=== PATIENT | female | born 1950 | race Caucasian/White ===

== ENCOUNTER 2017-07-20 02:04 | Observation (INO) | payer MEDICARE ==
[2017-07-20] MEDS ORDERED: ORPHENADRINE 30 MG/ML 2 ML VIAL IVP STA (02:37)
[2017-07-20] MEDS ORDERED: SODIUM CHLORIDE 0.9% 1,000 ML IV STA (02:37)
--- NOTE | 2017-07-20 02:40 | ED ---
General Adult HPI - General Chief complaint: Extremity Problem,Nontraumatic Stated complaint: leg pain Time Seen by Provider: 07/20/17 02:28 Source: patient, RN notes reviewed Mode of arrival: ambulatory Limitations: no limitations - History of Present Illness Initial comments: Patient is a pleasant 67-year-old female presenting to the emergency Department with bilateral leg burning. Symptoms have been present for months. Symptoms have been worse since seen a chiropractor week ago. No leg weakness. No incontinence or retention of bowel or bladder products. Patient's doctor has mentioned neuropathy to her in the past. Patient has known problems in her sacrum and coccyx that she attributes to her pain. Patient also has chronic heel spurs that she attributes to her pain. - Related Data Home Medications Medication Instructions Recorded Confirmed Rivaroxaban [Xarelto] 20 mg PO PC-SUPPER 09/20/14 02/09/15 Losartan Potassium [Cozaar] 25 mg PO DAILY 10/20/14 02/10/15 Acetaminophen Tab [Tylenol Tab] 500 mg PO Q6H 07/20/17 07/20/17 Furosemide [Lasix] 20 mg PO DAILY 07/20/17 07/20/17 Glimepiride [Amaryl] 2 mg PO DAILY 07/20/17 07/20/17 Insulin NPL/Insulin Lispro 35 unit SQ BID 07/20/17 07/20/17 [humaLOG MIX 75-25 VIAL] Meclizine [Antivert] 12.5 mg PO QID 07/20/17 07/20/17 traMADol HCL [Ultram] 50 mg PO DAILY PRN 07/20/17 07/20/17 Allergies Allergy/AdvReac Type Severity Reaction Status Date / Time acetaminophen Allergy nausea Verified 02/09/15 10:15 [From Darvocet-N] from acetominophen after a few doses cephalexin monohydrate Allergy Rash/Hives Verified 02/09/15 10:15 [From Keflex] codeine Allergy Nausea Verified 02/09/15 10:15 latex Allergy Rash/Hives Verified 02/09/15 10:15 propoxyphene napsylate Allergy Rash/Hives Verified 02/09/15 10:15 [From Darvocet-N] Review of Systems ROS Statement: Those systems with pertinent positive or pertinent negative responses have been documented in the HPI. ROS Other: All systems not noted in ROS Statement are negative. Constitutional: Denies: fever Eyes: Denies: eye pain ENT: Denies: ear pain Respiratory: Denies: cough Cardiovascular: Denies: chest pain Endocrine: Denies: fatigue Gastrointestinal: Denies: abdominal pain Genitourinary: Denies: dysuria Musculoskeletal: Reports: back pain (Chronic) Skin: Denies: rash Neurological: Denies: weakness Past Medical History Past Medical History: Atrial Fibrillation, Diabetes Mellitus, Deep Vein Thrombosis (DVT), GERD/Reflux, Hearing Disorder / Deafness, Hypertension, Neurologic Disorder, Osteoarthritis (OA), Pulmonary Embolus (PE) Additional Past Medical History / Comment(s): HX FACTOR 5 , DIZZINESS LATELY-HX VERTIGO SINCE 1991, HX MOTION SICKNESS ALL HER LIFE, HX IBS,TARSAL TUNNEL PROBLEMS NIKOLAY. ANKLES,PINCHED NERVE LOWER BACK, DDD, HAS POLYP LT CHEEK-BUT DR. IBRAHIM DOESN'T WANT PT TO HAVE REMOVED DVT-LT LEG & PE 2007, CHRONIC SINUS, LIVER ENZMES ELEVATED SPRING 2014,THYROID IS ENLARGED, WEARS GLASSES DISTANCE ONLY, FLUID IN LEFT EAR ALL THE TIME History of Any Multi-Drug Resistant Organisms: None Reported Past Surgical History: Bowel Resection, Cholecystectomy, Hysterectomy, Tonsillectomy, Tubal Ligation Additional Past Surgical History / Comment(s): CARDIOVERSION 12/22/14 @ [facility], LUMP REMOVED RT ARMPIT AREA, COLOSTOMY 1991 AFTER HYST R/T RUPTURED BOWEL REVISION OCTOBER 1991 Past Anesthesia/Blood Transfusion Reactions: Previous Problems w/ Anesthesia, Motion Sickness, Postoperative Nausea & Vomiting (PONV) Additional Past Anesthesia/Blood Transfusion Reaction / Comment(s): HX FACTOR 5 LIDEN,PONV- MOTION SICKNESS ALL HER LIFE- VERTIGO Past Psychological History: No Psychological Hx Reported Smoking Status: Never smoker - Past Family History Mother Family Medical History: CVA/TIA, Diabetes Mellitus, Hypertension Father History Unknown: Yes Additional Family Medical History / Comment(s): FATHER @ AGE 83- PT WAS 3 YRS OLD @ THE TIME- HX UNKNOWN Sister(s) Family Medical History: Cancer Additional Family Medical History / Comment(s): 5 SISTERS WITH THYROID- 3 SISTERS HAD CA- PANCREATIC,CERVICAL & MELANOMA General Exam Limitations: no limitations General appearance: alert, in no apparent distress Head exam: Present: atraumatic Eye exam: Present: normal appearance, PERRL ENT exam: Present: normal oropharynx Neck exam: Present: normal inspection Respiratory exam: Present: normal lung sounds bilaterally Cardiovascular Exam: Present: regular rate, normal rhythm Expanded Peripheral pulses: 2+: Dorsalis Pedis (R), Dorsalis Pedis (L) GI/Abdominal exam: Present: soft. Absent: tenderness Extremities exam: Present: normal inspection. Absent: tenderness, pedal edema, calf tenderness Back exam: Present: tenderness (Tenderness to the lower sacrum). Absent: vertebral tenderness Neurological exam: Present: alert. Absent: motor sensory deficit Psychiatric exam: Present: normal affect, normal mood Skin exam: Present: normal color. Absent: rash Course Vital Signs 07/20/17 07/20/17 07/20/17 02:12 04:00 05:00 Temperature 97.7 F Pulse Rate 73 120 H 64 Respiratory 20 19 16 Rate Blood Pressure 104/51 161/70 O2 Sat by Pulse 97 98 100 Oximetry 07/20/17 05:35 Temperature Pulse Rate 75 Respiratory 16 Rate Blood Pressure 113/86 O2 Sat by Pulse 98 Oximetry - Reevaluation(s) Reevaluation #1: 07/20/17 03:39 Patient reevaluated and states she is feeling somewhat better with Norflex. Patient does feel nauseated and states she has been nauseated for the past several days. Patient will be provided Zofran. Medical Decision Making - Medical Decision Making Patient was earlier reevaluated and somewhat improved. Patient states last time she saw her doctor he was trying to advise her to be admitted to the hospital for IV treatment. Case was then discussed in detail with Dr. Becerril , who will admit his patient and does request consult with Dr. Goodrich. - Lab Data Result diagrams: 07/20/17 02:35 07/20/17 02:35 Lab Results 07/20/17 07/20/17 07/20/17 Range/Units 02:35 02:35 02:35 WBC 7.2 (3.8-10.6) k/uL RBC 4.50 (3.80-5.40) m/uL Hgb 13.1 (11.4-16.0) gm/dL Hct 41.4 (34.0-46.0) % MCV 92.0 (80.0-100.0) fL MCH 29.2 (25.0-35.0) pg MCHC 31.7 (31.0-37.0) g/dL RDW 15.2 (11.5-15.5) % Plt Count 164 (150-450) k/uL Neutrophils % 65 % Lymphocytes % 24 % Monocytes % 8 % Eosinophils % 2 % Basophils % 1 % Neutrophils # 4.7 (1.3-7.7) k/uL Lymphocytes # 1.7 (1.0-4.8) k/uL Monocytes # 0.6 (0-1.0) k/uL Eosinophils # 0.1 (0-0.7) k/uL Basophils # 0.0 (0-0.2) k/uL PT 14.2 H (9.0-12.0) sec INR 1.5 H (<1.2) APTT 24.4 (22.0-30.0) sec Sodium 142 (137-145) mmol/L Potassium 4.6 (3.5-5.1) mmol/L Chloride 106 (98-107) mmol/L Carbon Dioxide 22 (22-30) mmol/L Anion Gap 14 mmol/L BUN 27 H (7-17) mg/dL Creatinine 1.00 (0.52-1.04) mg/dL Est GFR (CKD-EPI)AfAm 69 (>60 ml/min/1.73 sqM) Est GFR (CKD-EPI)NonAf 60 (>60 ml/min/1.73 sqM) Glucose 141 H (74-99) mg/dL Calcium 9.2 (8.4-10.2) mg/dL Phosphorus 3.3 (2.5-4.5) mg/dL Magnesium 1.9 (1.6-2.3) mg/dL Total Bilirubin 1.2 (0.2-1.3) mg/dL AST 38 H (14-36) U/L ALT 35 (9-52) U/L Alkaline Phosphatase 66 (38-126) U/L Total Protein 6.9 (6.3-8.2) g/dL Albumin 3.6 (3.5-5.0) g/dL - Radiology Data Radiology results: image reviewed (X-ray of the sacrum and coccyx shows no acute process. X-ray of the lumbar spine shows no acute abnormality. Multilevel degenerative changes.) Disposition Clinical Impression: Bilateral leg pain, Low back pain Disposition: ADMITTED IP TO THIS HOSP Referrals: Mehdi Becerril MD [Primary Care Provider] - 1-2 days
[2017-07-20 03:03] LABS: Basophils % (A) 1 %; Eosinophils # (A) 0.1 k/uL (0-0.7); Eosinophils % (A) 2 %; HCT 41.4 % (34.0-46.0); HGB 13.1 gm/dL (11.4-16.0); Lymphocytes # (A) 1.7 k/uL (1.0-4.8); Lymphocytes % (A) 24 %; MCH 29.2 pg (25.0-35.0); MCHC 31.7 g/dL (31.0-37.0); Mean Platelet Volume 7.9; Monocytes # (A) 0.6 k/uL (0-1.0); Monocytes % (A) 8 %; Neutrophils # (A) 4.7 k/uL (1.3-7.7); Neutrophils % (A) 65 %; Platelet Count 164 k/uL (150-450); RDW 15.2 % (11.5-15.5); WBC 7.2 k/uL (3.8-10.6)
[2017-07-20 03:04] LABS: INR 1.5 (<1.2); Partial Thromboplastin Time 24.4 sec (22.0-30.0); Prothrombin Time 14.2 sec (9.0-12.0)
[2017-07-20 03:06] LABS: Albumin 3.6 g/dL (3.5-5.0); Calcium 9.2 mg/dL (8.4-10.2); Magnesium 1.9 mg/dL (1.6-2.3); Phosphorus 3.3 mg/dL (2.5-4.5); Potassium 4.6 mmol/L (3.5-5.1); Total Bilirubin 1.2 mg/dL (0.2-1.3); Total Protein 6.9 g/dL (6.3-8.2)
--- NOTE | 2017-07-20 03:36 | XR ---
EXAM: XR Lumbar Spine, 2 or 3 Views CLINICAL HISTORY: No recent injury. pt. Has hx. of back and sacrum/coccyx years ago. pt. C/o low back pain and sacrum/coccyx pain. Reason: Pain TECHNIQUE: Frontal and lateral views of the lumbar spine. COMPARISON: None FINDINGS: Bones/joints: No acute fracture or subluxation identified. Prominent multilevel degenerative changes of the lower thoracic spine and lumbar spine. Mild degenerative changes of the hips. Soft tissues: Cholecystectomy clips in the right upper quadrant. IMPRESSION: No acute abnormality identified. Prominent multilevel degenerative changes of the visualized spine.
--- NOTE | 2017-07-20 03:37 | XR ---
EXAM: XR Sacrum and Coccyx, 2 or more Views CLINICAL HISTORY: No recent injury. pt. Has hx. of back and sacrum/coccyx years ago. pt. C/o low back pain and sacrum/coccyx pain. Reason: Pain TECHNIQUE: Frontal and lateral views of the sacrum and coccyx. COMPARISON: None FINDINGS: Bones/joints: No acute fracture or subluxation identified. Mild degenerative changes of the hips. Prominent multilevel degenerative changes of the visualized lower lumbar spine. Soft tissues: Normal. IMPRESSION: No acute abnormality identified.
[2017-07-20] MEDS ORDERED: ONDANSETRON 4 MG/2 ML VIAL IVP STA (03:38)
[2017-07-20] MEDS ORDERED: MORPHINE SULFATE/PF 10MG/10ML VL IVP STA (04:10)
[2017-07-20] MEDS ORDERED: SODIUM CHLORIDE 0.9% 500 ML IV STA (04:11)
[2017-07-20] MEDS ORDERED: MORPHINE SULFATE/PF 10MG/10ML VL IV PRN (06:56)
[2017-07-20] MEDS ORDERED: ONDANSETRON 4 MG/2 ML VIAL IVP PRN (06:56)
[2017-07-20] MEDS ORDERED: NALOXONE 0.4 MG/ML 1 ML VIAL IV PRN (06:56)
[2017-07-20] MEDS ORDERED: SODIUM CHLORIDE 0.9% 1,000 ML IV SCH (07:00)
[2017-07-20 08:43] VITALS: BMI 48.5
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
[2017-07-20] MEDS: PANTOPRAZOLE 40 MG/10 ML VIAL IV SCH (10:01)
[2017-07-20] MEDS ORDERED: FUROSEMIDE 20 MG TAB PO SCH (10:45)
[2017-07-20] MEDS ORDERED: INSULN ASP PRT/INSULIN ASPART 100 UNIT/ML 10 ML VIAL SQ SCH (10:45)
[2017-07-20] MEDS ORDERED: MORPHINE ORAL SOLN 10 MG/5 ML CUP PO PRN (11:24)
[2017-07-20 11:29] LABS: Glucose,Whole Blood 157 mg/dL (75-99)
[2017-07-20] MEDS: FUROSEMIDE 40 MG TAB PO SCH (11:34)
[2017-07-20] MEDS: LOSARTAN 25 MG TAB PO SCH (11:34)
[2017-07-20] MEDS: INSULIN ASPART 100 UNIT/ML 1 ML 10 ML VIAL SQ SCH ×3 (11:40→21:57)
[2017-07-20] MEDS ORDERED: ACETAMINOPHEN TAB 500 MG TAB PO PRN (11:43)
[2017-07-20] MEDS ORDERED: ACETAMINOPHEN TAB 500 MG TAB PO SCH (12:00)
[2017-07-20] MEDS: GLIMEPIRIDE 2 MG TAB PO SCH (14:31)
[2017-07-20 16:19] LABS: Glucose,Whole Blood 146 mg/dL (75-99)
[2017-07-20] MEDS: CARVEDILOL 12.5 MG TAB PO SCH (17:51)
[2017-07-20] MEDS: methylPREDNISolone SOD SUCCI 125 MG/2 ML VIAL IV SCH ×2 (17:51→23:58)
[2017-07-20] MEDS: INSULN ASP PRT/INSULIN ASPART 100 UNIT/ML 10 ML VIAL SQ SCH (17:53)
[2017-07-20 18:22] LABS: T4, Free (Free Thyroxine) 1.51 ng/dL (0.78-2.19)
[2017-07-20] MEDS: RIVAROXABAN 20 MG TAB PO SCH (19:32)
[2017-07-20 19:57] LABS: Glucose,Whole Blood 235 mg/dL (75-99)
[2017-07-20 19:59] LABS: Hemoglobin A1C 8.7 % (4.0-6.0)
[2017-07-20] MEDS: DILTIAZEM ORAL 60 MG TAB PO SCH (20:48)
--- NOTE | 2017-07-21 06:28 | HP ---
HISTORY AND PHYSICAL CHIEF COMPLAINT: A 67-year-old white female admitted with bilateral leg burning and severe lower back pain. She had no incontinence of urine or stool. She has neuropathy and lumbar disc disease. She has been seen by orthopedic surgeon. She has had tachycardia into the 150s. She has not taken a beta ashley that she normally takes at home. HOME MEDICATIONS: 1. Xarelto 20 daily. 2. Cozaar 25 daily. 3. Tylenol 500 q.6 hours. 4. Lasix 20 daily. 5. Amaryl 2 mg daily. 6. Humalog 75/25, 35 units subcu b.i.d. 7. Antivert 12.5 mg p.o. q.i.d. 8. Tramadol 50 daily. ALLERGIES: KEFLEX, CODEINE, LASIX, DARVOCET-N 100. REVIEW OF SYSTEMS: Fourteen-point review of systems negative except for mentioned in HPI. PAST MEDICAL HISTORY: Atrial fibrillation, diabetes mellitus, DVT, GERD, hearing disorder, hypertension, neurologic disorder, osteoarthritis, pulmonary embolism, factor 5 deficiency, IBS, carpal tunnel syndrome, polyp left cheek, chronic sinus congestion, vertigo. SURGERY: Bowel resection, cholecystectomy, hysterectomy, tonsillectomy, tubal ligation, colostomy ruptured bowel revision. FAMILY HISTORY: Mother with CVA, TIA, diabetes, hypertension. Father unknown. Sister with thyroid cancer, pancreatic cancer, melanoma. PHYSICAL EXAM: VITAL SIGNS: Stable, afebrile. CARDIOVASCULAR: S1, S2. LUNGS: Transmitted upper airway sounds. HEMATOLOGY: Negative Homans. ENDOCRINE: BMI is over 45. GI: Distended due to obesity. MUSCULOSKELETAL: Tenderness to palpation lumbar sacral spine, mid thoracic spine, cervical spine. SENSORY: Decreased sensation of extremities. : No suprapubic tenderness. OPHTHALMOLOGICAL: Pupils equal, round, reactive to light and accommodation. Temperature 97.7, blood pressure 140s over 70s, pulse is 150s, temp 97 to 98, O2 97% to 100%. Labs were reviewed. ASSESSMENT: 1. Lumbar radiculopathy. 2. Lumbar disc disease. She is refusing outpatient epidurals or surgery. She has been given morphine currently at this time with improvement. Continue current treatment. Follow up in the next 24 to 48 hours with PT, OT. Possible discharge home. Beta blockers will be added for tachycardia. Cardiology is consulted. Labs were reviewed. MMODL / IJN: [id number] /
[2017-07-21 07:21] LABS: Glucose,Whole Blood 323 mg/dL (75-99)
[2017-07-21] MEDS: INSULN ASP PRT/INSULIN ASPART 100 UNIT/ML 10 ML VIAL SQ SCH ×2 (07:35→17:32)
[2017-07-21] MEDS: INSULIN ASPART 100 UNIT/ML 1 ML 10 ML VIAL SQ SCH ×4 (07:36→21:01)
[2017-07-21] MEDS ORDERED: INSULIN ASPART 100 UNIT/ML 1 ML 10 ML VIAL SQ ONE (08:06)
[2017-07-21] MEDS: LOSARTAN 25 MG TAB PO SCH (08:26)
[2017-07-21] MEDS: GLIMEPIRIDE 2 MG TAB PO SCH (08:26)
[2017-07-21] MEDS: DILTIAZEM ORAL 60 MG TAB PO SCH ×3 (08:26→21:56)
[2017-07-21] MEDS: FUROSEMIDE 40 MG TAB PO SCH (08:26)
[2017-07-21] MEDS: CARVEDILOL 12.5 MG TAB PO SCH ×2 (08:26→18:49)
[2017-07-21] MEDS: PANTOPRAZOLE 40 MG/10 ML VIAL IV SCH (08:27)
[2017-07-21] MEDS ORDERED: GLIMEPIRIDE 2 MG TAB PO SCH (09:00)
[2017-07-21] MEDS ORDERED: HYDROcodone/APAP 7.5-325MG 1 EACH TAB PO PRN (10:21)
[2017-07-21] MEDS ORDERED: predniSONE 20 MG TAB PO SCH (10:30)
[2017-07-21] MEDS: methylPREDNISolone SOD SUCCI 125 MG/2 ML VIAL IV SCH (10:34)
[2017-07-21 11:50] LABS: Glucose,Whole Blood 252 mg/dL (75-99)
--- NOTE | 2017-07-21 13:42 | US ---
EXAMINATION TYPE: US thyroid st tissue head/neck DATE OF EXAM: 07/21/2017 COMPARISON: US 2009 CLINICAL HISTORY: inpatient US for previously enlarged thyroid GLAND SIZE: Right Lobe: 4.4 x 1.9 x 1.7 cm Overall Parenchyma: homogenous Left Lobe: 3.7 x 2.4 x 1.6 cm Overall Parenchyma: homogeneous Isthmus Thickness: 0.9 cm NODULES RIGHT: # of nodules measured on right: 0 LEFT: # of nodules measured on left: 0 ISTHMUS: # of nodules measured in the isthmus: 0 Bilateral neck scanned, no evidence of lymphadenopathy. IMPRESSION: Thyroid size as described.
--- NOTE | 2017-07-21 14:16 | CONS ---
CONSULTATION This is a 67-year-old obese lady with type 2 diabetes, hypertension, COPD, and persistent atrial fibrillation. She is also not very compliant with medications. She generally takes whatever medications she chooses to. She came into the hospital with back discomfort and leg discomfort. She is known to have atrial fibrillation. She stop taking both beta blockers and Cardizem. She, however, takes Xarelto. After arrival, she was found to be in atrial fibrillation at a moderate ventricular rate and therefore I was asked to see her in this regard. I evaluated the patient today. I recommended that she takes a combination of beta ashley and Cardizem, but she did not take Cardizem yesterday. She used to be on Lopressor, but she stopped it on her own. However, I have asked her to take Coreg 12.5 mg b.i.d. and heart rate is somewhat improved today at about 110 beats per minute. Her blood sugar control according to the patient is out of control and her A1c was more than 9.0. Her back pain has improved. She was seen by Dr. Goodrich who advised medical therapy, but no surgical intervention. This lady was also seen by Dr. Mcghee who felt that she is not a good candidate for any intervention and I suggested rate control and anticoagulation. She also has a nonischemic cardiomyopathy-type picture, especially when she has episodes of faster ventricular rate with atrial fibrillation. However, her coronary angiography that was performed in January 2015 did not reveal any significant obstructive CAD. At the time of my evaluation, she complains of feeling better than she did yesterday. Her breathing is easier, edema of lower extremities has improved. Her back pain has also improved. She has shortness of breath with activity. PAST MEDICAL HISTORY: Remarkable for type 2 diabetes, hypertension, obesity, and persistent atrial fibrillation. She has a remote history of DVT as well. MEDICATIONS: At home include Xarelto 20 mg daily, Cozaar 25 mg daily, Lasix 20 mg daily, Amaryl, insulin, Antivert, tramadol, and aspirin. ALLERGIES: She is allergic to DARVOCET, CODEINE, and KEFLEX. PHYSICAL EXAMINATION: Blood pressure is 118/70, pulse rate is about 110 to 120, irregular. HEENT: Unremarkable. Fundus was not examined by me. Neck is supple. There is JVD of 1 cm. No carotid bruit. Heart exam reveals S1, S2 heard normally with irregularity of rhythm, short systolic murmur. Lungs are clear with diminished air entry over both bases. Abdomen is distended, nontender. Lower extremities reveal bilateral trace edema. Central nervous system is grossly within normal limits. IMPRESSION: 1. Atrial fibrillation with moderate ventricular rate. Noncompliant with medications. 2. Obesity. 3. Type 2 diabetes mellitus. 4. History of degenerative joint disease with back pain. RECOMMENDATION: I am recommending that we treat her with a combination of Coreg and Cardizem 60 mg t.i.d. She is not a very good candidate for any pulmonary vein isolation-type procedures. We will pursue rate control and anticoagulation. Patient can be discharged and she is advised to follow up with me as an outpatient. I am also recommending an echocardiogram to be performed, but patient is not receptive to any additional testing. Thank you very much for the consult. LENCHO / WINNIE: [id number] /
[2017-07-21 16:54] LABS: Glucose,Whole Blood 182 mg/dL (75-99)
[2017-07-21] MEDS: RIVAROXABAN 20 MG TAB PO SCH (19:21)
[2017-07-21 20:35] LABS: Glucose,Whole Blood 222 mg/dL (75-99)
[2017-07-21] MEDS: MORPHINE SULFATE ER 15 MG TABLET PO SCH ×2 (21:02→21:10)
--- NOTE | 2017-07-21 22:31 | PN ---
PROGRESS NOTE SUBJECTIVE: [age]-old white female, atrial fibrillation with rapid ventricular response. Cardiology saw her today. She was placed on oral Cardizem to go with a beta ashley. IV prednisone was discontinued due to elevated sugar. She was given 40 mg today. Tomorrow we will switch her to 20 mg. She has degenerative joint disease with back pain. I put her on long-acting morphine, as she cannot tolerate [place]oud or Percocet due to upset stomach. Sugar is in the mid 200s. CARDIOVASCULAR: S1, S2. LUNGS: Transmitted upper airway sounds. Neck ultrasound is pending. She wanted her hormone levels checked, her thyroid levels checked. Thyroid is normal. ASSESSMENT: 1. Atrial fibrillation, moderate ventricular response. 2. Obesity. 3. Lumbar neuritis. 4. Peripheral neuropathy secondary to diabetic neuropathy. 5. Type 2 diabetes mellitus. 6. Obesity. Echo has been ordered. Will follow up in the next 24 to 48 hours. Possible discharge. Continue with PT, OT. Await neck ultrasound, etc. MMODL / IJN: [id number] /
[2017-07-22] MEDS: MORPHINE SULFATE ER 15 MG TABLET PO SCH ×2 (00:45→07:29)
[2017-07-22 06:57] LABS: Glucose,Whole Blood 260 mg/dL (75-99)
[2017-07-22] MEDS: INSULIN ASPART 100 UNIT/ML 1 ML 10 ML VIAL SQ SCH ×2 (07:25→12:50)
[2017-07-22] MEDS: INSULN ASP PRT/INSULIN ASPART 100 UNIT/ML 10 ML VIAL SQ SCH (07:25)
[2017-07-22] MEDS: FUROSEMIDE 40 MG TAB PO SCH (07:26)
[2017-07-22] MEDS: DILTIAZEM ORAL 60 MG TAB PO SCH (07:26)
[2017-07-22] MEDS: CARVEDILOL 12.5 MG TAB PO SCH (07:27)
[2017-07-22] MEDS: LOSARTAN 25 MG TAB PO SCH (07:27)
[2017-07-22] MEDS: GLIMEPIRIDE 2 MG TAB PO SCH (07:27)
[2017-07-22] MEDS ORDERED: PANTOPRAZOLE 40 MG TABLET PO SCH (07:30)
[2017-07-22] MEDS ORDERED: predniSONE 20 MG TAB PO SCH (09:00)
[2017-07-22 11:08] LABS: Glucose,Whole Blood 253 mg/dL (75-99)
[2017-07-22 14:49] VITALS: BP 112/80; PULSE 79; RESP 18; TEMP 97.5
== END 2017-07-22 15:55 | disposition home or self-care (01) ==
LOC: EC 02:04 → 5MS5E 06:56
PROVIDERS: ADMIT Family Medicine; ATTEND Family Medicine
DX: M54.16 Radiculopathy, lumbar region (principal); R11.0 Nausea; R42 Dizziness and giddiness; M77.32 Calcaneal spur, left foot; M77.31 Calcaneal spur, right foot; I48.1 Persistent atrial fibrillation; M43.16 Spondylolisthesis, lumbar region; M47.9 Spondylosis, unspecified; G89.29 Other chronic pain; M51.9 Unspecified thoracic, thoracolumbar and lumbosacral intervertebral disc disorder; K21.9 Gastro-esophageal reflux disease without esophagitis; I10 Essential (primary) hypertension; D68.51 Activated protein C resistance; H91.90 Unspecified hearing loss, unspecified ear; M19.90 Unspecified osteoarthritis, unspecified site; E11.42 Type 2 diabetes mellitus with diabetic polyneuropathy; R00.0 Tachycardia, unspecified; K58.9 Irritable bowel syndrome, unspecified; J44.9 Chronic obstructive pulmonary disease, unspecified; E66.9 Obesity, unspecified; Z68.42 Body mass index [BMI] 45.0-49.9, adult; F41.9 Anxiety disorder, unspecified; I42.9 Cardiomyopathy, unspecified; Z79.01 Long term (current) use of anticoagulants; Z79.899 Other long term (current) drug therapy; Z91.14 Patient's other noncompliance with medication regimen; Z79.4 Long term (current) use of insulin; Z79.84 Long term (current) use of oral hypoglycemic drugs; Z88.5 Allergy status to narcotic agent; Z88.6 Allergy status to analgesic agent; Z88.1 Allergy status to other antibiotic agents; Z91.040 Latex allergy status; Z86.718 Personal history of other venous thrombosis and embolism; Z86.711 Personal history of pulmonary embolism; Z80.8 Family history of malignant neoplasm of other organs or systems; Z82.3 Family history of stroke; Z80.0 Family history of malignant neoplasm of digestive organs
CPT/HCPCS: 99284 ×2; 96374 ×2; 96361 ×7; 96375 ×4; 96376 ×2; 36415; 93005; 97161; 85379; 84439; 84481; 80053; 84443; 82670; 83735; 84100; 84484 ×2; 85025; 85610; 85730; 83036; 72100; 72220; 76536; G0378 ×3; J2360; J2930; J2405; J7512 ×2; C9113 ×2; J2270

== ENCOUNTER 2017-08-04 17:06 | Inpatient (IN) | payer MEDICARE ==
[2017-08-04] MEDS ORDERED: MORPHINE SULFATE 4 MG/ML SYRINGE IV STA (17:44)
[2017-08-04] MEDS ORDERED: RX INFO: IV CONTRAST WAS GIVEN 1 EACH MISC MISCELLANE PRN (17:44)
[2017-08-04] MEDS ORDERED: SODIUM CHLORIDE 0.9% 500 ML IV STA (17:44)
--- NOTE | 2017-08-04 17:48 | ED ---
General Adult HPI - General Chief complaint: Abdominal Pain Stated complaint: ABDOMINAL PAIN Time Seen by Provider: 08/04/17 17:30 Source: patient, RN notes reviewed, old records reviewed Mode of arrival: ambulatory Limitations: no limitations - History of Present Illness Initial comments: 67-year-old female presents for evaluation of abdominal pain. Pain is primarily lower central abdominal pain. His been present for the past several days. Patient has been passing gas, she had an episode of diarrhea yesterday. No significant vomiting, however patient has had nausea and dry heaving. She has remote history of hysterectomy and colostomy status post reversal. Patient also has had chills, no measured fever. Denies chest pain she's had some mild dyspnea and palpitations, she does have history of atrial fibrillation and is on anticoagulation. No dysuria. - Related Data Home Medications Medication Instructions Recorded Confirmed Rivaroxaban [Xarelto] 20 mg PO PC-SUPPER 09/20/14 08/04/17 Furosemide [Lasix] 40 mg PO DAILY 07/20/17 08/04/17 Glimepiride [Amaryl] 2 mg PO DAILY 07/20/17 08/04/17 Insulin NPL/Insulin Lispro 35 unit SQ BID 07/20/17 08/04/17 [humaLOG MIX 75-25 VIAL] Losartan Potassium [Cozaar] 25 mg PO DAILY 07/20/17 08/04/17 traMADol HCL [Ultram] 50 mg PO DAILY PRN 07/20/17 08/04/17 Loratadine [Claritin] 10 mg PO DAILY 08/04/17 08/04/17 Allergies Allergy/AdvReac Type Severity Reaction Status Date / Time acetaminophen Allergy nausea Verified 08/04/17 17:35 [From Darvocet-N] from acetominophen after a few doses cephalexin monohydrate Allergy Rash/Hives Verified 08/04/17 17:35 [From Keflex] latex Allergy Rash/Hives Verified 08/04/17 17:35 morphine Allergy Itching/Teo Verified 08/04/17 17:35 sea propoxyphene napsylate Allergy Rash/Hives Verified 08/04/17 17:35 [From Darvocet-N] codeine AdvReac Nausea Verified 08/04/17 17:35 Review of Systems ROS Statement: Those systems with pertinent positive or pertinent negative responses have been documented in the HPI. ROS Other: All systems not noted in ROS Statement are negative. Past Medical History Past Medical History: Atrial Fibrillation, Diabetes Mellitus, Deep Vein Thrombosis (DVT), GERD/Reflux, Hearing Disorder / Deafness, Neurologic Disorder , Osteoarthritis (OA), Pulmonary Embolus (PE) Additional Past Medical History / Comment(s): HX FACTOR 5 , DIZZINESS LATELY-HX VERTIGO SINCE 1991, HX MOTION SICKNESS ALL HER LIFE, HX IBS,TARSAL TUNNEL PROBLEMS NIKOLAY. ANKLES,PINCHED NERVE LOWER BACK, DDD, HAS POLYP LT CHEEK-BUT DR. IBRAHIM DOESN'T WANT PT TO HAVE REMOVED DVT-LT LEG & PE 2007, CHRONIC SINUS, LIVER ENZMES ELEVATED SPRING 2014,THYROID IS ENLARGED, WEARS GLASSES DISTANCE ONLY, FLUID IN LEFT EAR ALL THE TIME History of Any Multi-Drug Resistant Organisms: None Reported Past Surgical History: Bowel Resection, Cholecystectomy, Hysterectomy, Tonsillectomy, Tubal Ligation Additional Past Surgical History / Comment(s): CARDIOVERSION 2014 and 2016 @ [facility], LUMP REMOVED RT ARMPIT AREA, COLOSTOMY 1991 AFTER HYST R/T RUPTURED BOWEL REVISION OCTOBER 1991 Past Anesthesia/Blood Transfusion Reactions: Previous Problems w/ Anesthesia, Motion Sickness, Postoperative Nausea & Vomiting (PONV) Additional Past Anesthesia/Blood Transfusion Reaction / Comment(s): HX FACTOR 5 LIDEN,PONV- MOTION SICKNESS ALL HER LIFE- VERTIGO Past Psychological History: Anxiety Smoking Status: Never smoker Past Alcohol Use History: None Reported Past Drug Use History: None Reported - Past Family History Mother Family Medical History: CVA/TIA, Diabetes Mellitus, Hypertension Father History Unknown: Yes Additional Family Medical History / Comment(s): FATHER @ AGE 83- PT WAS 3 YRS OLD @ THE TIME- HX UNKNOWN Sister(s) Family Medical History: Cancer Additional Family Medical History / Comment(s): 5 SISTERS WITH THYROID- 3 SISTERS HAD CA- PANCREATIC,CERVICAL & MELANOMA General Exam Limitations: no limitations General appearance: alert, in no apparent distress Head exam: Present: atraumatic, normocephalic Eye exam: Present: normal appearance, PERRL ENT exam: Present: mucous membranes dry Neck exam: Present: normal inspection. Absent: tenderness, meningismus Respiratory exam: Present: normal lung sounds bilaterally. Absent: respiratory distress Cardiovascular Exam: Present: tachycardia, irregular rhythm GI/Abdominal exam: Present: soft, distended (Periumbilical and left lower quadrant tenderness to palpation), tenderness. Absent: guarding, rebound Extremities exam: Present: normal inspection, normal capillary refill. Absent: pedal edema Neurological exam: Present: alert, oriented X3, CN II-XII intact. Absent: motor sensory deficit Psychiatric exam: Present: normal affect, normal mood Skin exam: Present: warm, dry, intact. Absent: cyanosis, diaphoretic Course Vital Signs 08/04/17 08/04/17 08/04/17 17:18 18:01 18:31 Temperature 98.2 F Pulse Rate 141 H 147 H 141 H Respiratory 20 20 18 Rate Blood Pressure 123/73 105/52 109/75 O2 Sat by Pulse 97 95 97 Oximetry 08/04/17 08/04/17 08/04/17 18:57 19:30 19:48 Temperature Pulse Rate 121 H 139 H 122 H Respiratory 18 20 18 Rate Blood Pressure 131/66 138/91 133/89 O2 Sat by Pulse 98 99 96 Oximetry 08/04/17 20:19 Temperature Pulse Rate 124 H Respiratory 20 Rate Blood Pressure 133/56 O2 Sat by Pulse 98 Oximetry EKG Findings - EKG Comments: EKG Findings:: EKG, atrial fibrillation with left axis deviation, right bundle branch block, ventricular rate 148, QRS duration 128, QTC [address] segment elevation Medical Decision Making - Medical Decision Making 67-year-old female presenting with lower abdominal pain and bloating. Patient is found to be in A. fib with RVR. She is started on Cardizem, patient is currently anticoagulated with XArelto. Regarding the patient's abdominal pain, normal white blood cell count, stable hemoglobin, normal electrolytes and liver testing. Urinalysis does show 20 wbc's with rare bacteria, this will be cultured. CT is obtained, shows ventral hernia without obstruction and soft tissue edema. Case discussed with Dr. Becerril, he will accept admission, cardiology and general surgery will be placed on consult. - Lab Data Result diagrams: 08/04/17 17:49 08/04/17 17:49 Lab Results 08/04/17 08/04/17 08/04/17 Range/Units 17:49 17:49 17:49 WBC 6.8 (3.8-10.6) k/uL RBC 4.63 (3.80-5.40) m/uL Hgb 14.3 (11.4-16.0) gm/dL Hct 43.2 (34.0-46.0) % MCV 93.3 (80.0-100.0) fL MCH 30.8 (25.0-35.0) pg MCHC 33.0 (31.0-37.0) g/dL RDW 15.8 H (11.5-15.5) % Plt Count 163 (150-450) k/uL Neutrophils % 67 % Lymphocytes % 23 % Monocytes % 6 % Eosinophils % 1 % Basophils % 1 % Neutrophils # 4.6 (1.3-7.7) k/uL Lymphocytes # 1.6 (1.0-4.8) k/uL Monocytes # 0.4 (0-1.0) k/uL Eosinophils # 0.1 (0-0.7) k/uL Basophils # 0.0 (0-0.2) k/uL PT (9.0-12.0) sec INR (<1.2) APTT (22.0-30.0) sec Sodium 143 (137-145) mmol/L Potassium 4.5 (3.5-5.1) mmol/L Chloride 103 (98-107) mmol/L Carbon Dioxide 23 (22-30) mmol/L Anion Gap 17 mmol/L BUN 25 H (7-17) mg/dL Creatinine 1.00 (0.52-1.04) mg/dL Est GFR (CKD-EPI)AfAm 69 (>60 ml/min/1.73 sqM) Est GFR (CKD-EPI)NonAf 60 (>60 ml/min/1.73 sqM) Glucose 222 H (74-99) mg/dL Plasma Lactic Acid Erick (0.7-2.0) mmol/L Calcium 9.4 (8.4-10.2) mg/dL Magnesium 2.2 (1.6-2.3) mg/dL Total Bilirubin 1.3 (0.2-1.3) mg/dL AST 35 (14-36) U/L ALT 40 (9-52) U/L Alkaline Phosphatase 83 (38-126) U/L Total Creatine Kinase 115 (30-135) U/L CK-MB (CK-2) 2.9 H* (0.0-2.4) ng/mL CK-MB (CK-2) Rel Index 2.5 Troponin I 0.012 (0.000-0.034) ng/mL Total Protein 6.8 (6.3-8.2) g/dL Albumin 3.7 (3.5-5.0) g/dL Amylase 53 (30-110) U/L Lipase 166 (23-300) U/L Urine Color Urine Appearance (Clear) Urine pH (5.0-8.0) Ur Specific [place] (1.001-1.035) Urine Protein (Negative) Urine Glucose (UA) (Negative) Urine Ketones (Negative) Urine Blood (Negative) Urine Nitrite (Negative) Urine Bilirubin (Negative) Urine Urobilinogen (<2.0) mg/dL Ur Leukocyte Esterase (Negative) Urine RBC (0-5) /hpf Urine WBC (0-5) /hpf Ur Squamous Epith Cells (0-4) /hpf Urine Bacteria (None) /hpf Hyaline Casts (0-2) /lpf Urine Mucus (None) /hpf 08/04/17 08/04/17 08/04/17 Range/Units 17:49 17:49 18:01 WBC (3.8-10.6) k/uL RBC (3.80-5.40) m/uL Hgb (11.4-16.0) gm/dL Hct (34.0-46.0) % MCV (80.0-100.0) fL MCH (25.0-35.0) pg MCHC (31.0-37.0) g/dL RDW (11.5-15.5) % Plt Count (150-450) k/uL Neutrophils % % Lymphocytes % % Monocytes % % Eosinophils % % Basophils % % Neutrophils # (1.3-7.7) k/uL Lymphocytes # (1.0-4.8) k/uL Monocytes # (0-1.0) k/uL Eosinophils # (0-0.7) k/uL Basophils # (0-0.2) k/uL PT 13.0 H (9.0-12.0) sec INR 1.4 H (<1.2) APTT 23.2 (22.0-30.0) sec Sodium (137-145) mmol/L Potassium (3.5-5.1) mmol/L Chloride (98-107) mmol/L Carbon Dioxide (22-30) mmol/L Anion Gap mmol/L BUN (7-17) mg/dL Creatinine (0.52-1.04) mg/dL Est GFR (CKD-EPI)AfAm (>60 ml/min/1.73 sqM) Est GFR (CKD-EPI)NonAf (>60 ml/min/1.73 sqM) Glucose (74-99) mg/dL Plasma Lactic Acid Erick 1.8 (0.7-2.0) mmol/L Calcium (8.4-10.2) mg/dL Magnesium (1.6-2.3) mg/dL Total Bilirubin (0.2-1.3) mg/dL AST (14-36) U/L ALT (9-52) U/L Alkaline Phosphatase (38-126) U/L Total Creatine Kinase (30-135) U/L CK-MB (CK-2) (0.0-2.4) ng/mL CK-MB (CK-2) Rel Index Troponin I (0.000-0.034) ng/mL Total Protein (6.3-8.2) g/dL Albumin (3.5-5.0) g/dL Amylase (30-110) U/L Lipase (23-300) U/L Urine Color Yellow Urine Appearance Cloudy H (Clear) Urine pH 6.5 (5.0-8.0) Ur Specific [place] 1.008 (1.001-1.035) Urine Protein Trace H (Negative) Urine Glucose (UA) Negative (Negative) Urine Ketones Negative (Negative) Urine Blood Small H (Negative) Urine Nitrite Negative (Negative) Urine Bilirubin Negative (Negative) Urine Urobilinogen <2.0 (<2.0) mg/dL Ur Leukocyte Esterase Large H (Negative) Urine RBC 14 H (0-5) /hpf Urine WBC 28 H (0-5) /hpf Ur Squamous Epith Cells 6 H (0-4) /hpf Urine Bacteria Rare H (None) /hpf Hyaline Casts 2 (0-2) /lpf Urine Mucus Rare H (None) /hpf Critical Care Time Critical Care Time: Yes Total Critical Care Time: 35 Disposition Clinical Impression: Atrial fibrillation with RVR, Ventral hernia Disposition: ADMITTED IP TO THIS HOSP Condition: Stable Referrals: Mehdi Becerril MD [Primary Care Provider] - 1-2 days Decision to Admit Reason: Admit from EC Decision Date: 08/04/17 Decision Time: 20:23
[2017-08-04] MEDS ORDERED: DILTIAZEM 50 MG in SODIUM CHLORIDE 0.9% 40 ML IV ONE (18:00)
[2017-08-04 18:14] LABS: Appearance,Urine Cloudy (Clear); Bacteria,Urine Rare /hpf; Bilirubin,Urine Negative (Negative); Blood,Urine Small (Negative); Color,Urine Yellow; Glucose,Urine (UA) Negative (Negative); Hyaline Casts,Urine 2 /lpf (0-2); Ketones,Urine Negative (Negative); Leukocyte Esterase,Urine Large (Negative); Mucus,Urine Rare /hpf; Nitrite,Urine Negative (Negative); PH, Urine 6.5 (5.0-8.0); Protein,Urine Trace (Negative); RBC,Urine 14 /hpf (0-5); Specific Gravity,Urine 1.008 (1.001-1.035); Squamous Epithelial Cell,Urine 6 /hpf (0-4); Urobilinogen,Urine <2.0 mg/dL (<2.0); WBC,Urine 28 /hpf (0-5)
[2017-08-04 18:40] LABS: INR 1.4 (<1.2); Partial Thromboplastin Time 23.2 sec (22.0-30.0)
[2017-08-04 18:45] LABS: Basophils % (A) 1 %; Eosinophils # (A) 0.1 k/uL (0-0.7); Eosinophils % (A) 1 %; HCT 43.2 % (34.0-46.0); HGB 14.3 gm/dL (11.4-16.0); Lymphocytes # (A) 1.6 k/uL (1.0-4.8); Lymphocytes % (A) 23 %; MCH 30.8 pg (25.0-35.0); MCV 93.3 fL (80.0-100.0); Mean Platelet Volume 7.5; Monocytes # (A) 0.4 k/uL (0-1.0); Monocytes % (A) 6 %; Neutrophils # (A) 4.6 k/uL (1.3-7.7); Neutrophils % (A) 67 %; Platelet Count 163 k/uL (150-450); RBC 4.63 m/uL (3.80-5.40); RDW 15.8 % (11.5-15.5); WBC 6.8 k/uL (3.8-10.6)
[2017-08-04 18:59] LABS: Albumin 3.7 g/dL (3.5-5.0); Calcium 9.4 mg/dL (8.4-10.2); Magnesium 2.2 mg/dL (1.6-2.3); Potassium 4.5 mmol/L (3.5-5.1); Total Bilirubin 1.3 mg/dL (0.2-1.3); Total Protein 6.8 g/dL (6.3-8.2)
[2017-08-04 19:24] LABS: Troponin I 0.012 ng/mL (0.000-0.034)
[2017-08-04 19:27] LABS: Creatine Kinase MB 2.9 ng/mL (0.0-2.4)
--- NOTE | 2017-08-04 19:45 | CT ---
EXAMINATION TYPE: CT abdomen pelvis w con DATE OF EXAM: 08/04/2017 COMPARISON: 10/01/2011 HISTORY: ABDOMINAL PAIN WITH DISTENTION CT DLP: 3948.6 mGycm Automated exposure control for dose reduction was used. TECHNIQUE: Helical acquisition of images was performed from the lung bases through the pelvis. CONTRAST: Performed without Oral Contrast and with IV Contrast, patient injected with 100 mL of Isovue 300. FINDINGS: Lung bases are clear of infiltrate. There is no pleural effusion. There is slight decreased density i n the liver consistent with fatty infiltration. Spleen appears normal. There is no pancreatic mass. T here are clips from cholecystectomy. Bile ducts are not dilated. There is no adrenal mass. Kidneys show satisfactory contrast opacification. There is no hydronephrosi s. There is subcutaneous edema around the anterior abdomen. There is no retroperitoneal adenopathy. There is no ascites. Bladder distends smoothly. I see no pelv ic mass. There are spondylotic changes in the lumbar spine. I see no intestinal wall thickening. Ther e are no dilated loops. There is no sign of free air. There is a small ventral hernia that contains a small piece of transverse colon. I see no bowel obstruction. There is a second ventral hernia contai ns omental fat that measures 2 cm. There is differential density in the urinary bladder on the superi or aspect thought to be due to beam hardening artifact from the patient's size and not due to a bladd er mass. IMPRESSION: SUBCUTANEOUS EDEMA OVER THE ANTERIOR ABDOMEN. THERE ARE 2 SMALL VENTRAL HERNIAS AND ONE CONTAINS A PO RTION OF THE TRANSVERSE COLON WITHOUT EVIDENCE OF COLONIC OBSTRUCTION. CLINICAL SIGNIFICANCE IS NOT C LEAR. THIS HERNIA IS NEW COMPARED TO OLD EXAM. THERE IS A SECOND SMALL VENTRAL HERNIA THAT CONTAINS O MENTAL FAT AND APPEARS STABLE. FATTY INFILTRATION OF THE LIVER.
[2017-08-04] MEDS ORDERED: NALOXONE 0.4 MG/ML 1 ML VIAL IV PRN (20:18)
[2017-08-04 21:08] LABS: Glucose,Whole Blood 144 mg/dL (75-99)
[2017-08-04 21:43] VITALS: BMI 48.4
[2017-08-04] MEDS ORDERED: ONDANSETRON 4 MG/2 ML VIAL IVP PRN (23:13)
[2017-08-04] MEDS: INSULN ASP PRT/INSULIN ASPART 100 UNIT/ML 10 ML VIAL SQ SCH (23:40)
[2017-08-05] MEDS: traMADol 50 MG TAB PO PRN (01:56)
[2017-08-05] MEDS ORDERED: DILTIAZEM 50 MG in SODIUM CHLORIDE 0.9% 40 ML IV SCH (06:15)
[2017-08-05 06:26] LABS: Glucose,Whole Blood 123 mg/dL (75-99)
[2017-08-05] MEDS: FUROSEMIDE 40 MG TAB PO SCH (08:01)
[2017-08-05] MEDS: GABAPENTIN 300 MG CAP PO SCH ×3 (08:02→23:30)
[2017-08-05] MEDS: GLIMEPIRIDE 2 MG TAB PO SCH ×2 (08:02→08:08)
[2017-08-05] MEDS: LOSARTAN 25 MG TAB PO SCH (08:02)
[2017-08-05] MEDS: INSULN ASP PRT/INSULIN ASPART 100 UNIT/ML 10 ML VIAL SQ SCH ×2 (08:27→22:04)
--- NOTE | 2017-08-05 08:37 | P.CRDCN ---
History of Present Illness Consult date: 08/05/17 Requesting physician: Mehdi Becerril Consult reason: atrial fibrillation Chief complaint: Abdominal pain History of present illness: This is a 67-year-old female with history of hypertension, diabetes, obesity, irritable nabor syndrome, factor V Leiden carrier, cardiomyopathy patient underwent a cardiac catheterization and 2015 which revealed a right dominant system. There was a 30-40% mid LAD lesion at that time, no significant disease in the nondominant circumflex or RCA. Patient also has history of COPD, hyperlipidemia, paroxysmal atrial fibrillation. On this most recent admission within one month ago, patient was discharged home with a Cardizem and metoprolol which she states she refuses to take. She does take Xarelto for anticoagulation. She presents to the hospital on this occasion with symptoms of abdominal discomfort with associated bloating. Patient states she's been significantly constipated, she used to have a notable bowel with frequent diarrhea, but lately she states she's been quite constipated. Patient also states she's noted more swelling in her lower extremities than usual. She denies any shortness of breath, no chest discomfort. Cardiology consultation was requested because of atrial fibrillation with rapid ventricular response. Her EKG on presentation here showed atrial fibrillation with rapid ventricular response anterior lateral T-wave changes. Blood pressure on arrival here 122/ 70 with a heart rate of 140, 97% on room air, temperature 98.2. White blood cell count is normal, hemoglobin 14.3, platelet count 163. Sodium 143, potassium 4.5, BUN 25, creatinine 1.0. Blood sugar on arrival 222. Troponin 0.012, amylase and lipase are normal. Magnesium 2.2. Liver enzymes normal. Positive UTI. CAT scan of the abdomen was performed which revealed subcutaneous edema over the entire anterior abdomen, there are 2 small ventral hernia is noted, one contains a portion of the transverse colon without evidence of colonic obstruction. The hernia is new as compared with old exam. There is a second small ventral hernia that contains omental fat and appears stable. Fatty infiltration of the liver also noted. At the time of my examination this morning, she continues to feel bloated, mild abdominal discomfort. Denies any dizziness or lightheadedness, no palpitations, no chest discomfort or shortness of breath. Past Medical History Past Medical History: Atrial Fibrillation, Diabetes Mellitus, Deep Vein Thrombosis (DVT), GERD/Reflux, Hearing Disorder / Deafness, Neurologic Disorder , Osteoarthritis (OA), Pulmonary Embolus (PE) Additional Past Medical History / Comment(s): HX FACTOR 5 , DIZZINESS LATELY-HX VERTIGO SINCE 1991, HX MOTION SICKNESS ALL HER LIFE, HX IBS,TARSAL TUNNEL PROBLEMS NIKOLAY. ANKLES,PINCHED NERVE LOWER BACK, DDD, HAS POLYP LT CHEEK-BUT DR. IBRAHIM DOESN'T WANT PT TO HAVE REMOVED DVT-LT LEG & PE 2007, CHRONIC SINUS, LIVER ENZMES ELEVATED SPRING 2014,THYROID IS ENLARGED, WEARS GLASSES DISTANCE ONLY, FLUID IN LEFT EAR ALL THE TIME History of Any Multi-Drug Resistant Organisms: None Reported Past Surgical History: Bowel Resection, Cholecystectomy, Hysterectomy, Tonsillectomy, Tubal Ligation Additional Past Surgical History / Comment(s): CARDIOVERSION 2014 and 2016 @ [facility], LUMP REMOVED RT ARMPIT AREA, COLOSTOMY 1991 AFTER HYST R/T RUPTURED BOWEL REVISION OCTOBER 1991 Past Anesthesia/Blood Transfusion Reactions: Previous Problems w/ Anesthesia, Motion Sickness, Postoperative Nausea & Vomiting (PONV) Additional Past Anesthesia/Blood Transfusion Reaction / Comment(s): HX FACTOR 5 LIDEN,PONV- MOTION SICKNESS ALL HER LIFE- VERTIGO Past Psychological History: Anxiety Additional Psychological History / Comment(s): History of anxiety attacks Smoking Status: Never smoker Past Alcohol Use History: None Reported Past Drug Use History: None Reported - Past Family History Mother Family Medical History: CVA/TIA, Diabetes Mellitus, Hypertension Father History Unknown: Yes Additional Family Medical History / Comment(s): FATHER @ AGE 83- PT WAS 3 YRS OLD @ THE TIME- HX UNKNOWN Sister(s) Family Medical History: Cancer Additional Family Medical History / Comment(s): 5 SISTERS WITH THYROID- 3 SISTERS HAD CA- PANCREATIC,CERVICAL & MELANOMA Medications and Allergies Home Medications Medication Instructions Recorded Confirmed Type Rivaroxaban [Xarelto] 20 mg PO PC-SUPPER 09/20/14 08/04/17 History Furosemide [Lasix] 40 mg PO DAILY 07/20/17 08/04/17 History Glimepiride [Amaryl] 2 mg PO DAILY 07/20/17 08/04/17 History Insulin NPL/Insulin Lispro 35 unit SQ BID 07/20/17 08/04/17 History [humaLOG MIX 75-25 VIAL] Losartan Potassium [Cozaar] 25 mg PO DAILY 07/20/17 08/04/17 History traMADol HCL [Ultram] 50 mg PO DAILY PRN 07/20/17 08/04/17 History Loratadine [Claritin] 10 mg PO DAILY 08/04/17 08/04/17 History Allergies Allergy/AdvReac Type Severity Reaction Status Date / Time acetaminophen Allergy nausea Verified 08/04/17 17:35 [From Darvocet-N] from acetominophen after a few doses cephalexin monohydrate Allergy Rash/Hives Verified 08/04/17 17:35 [From Keflex] latex Allergy Rash/Hives Verified 08/04/17 17:35 morphine Allergy Itching/Teo Verified 08/04/17 17:35 sea propoxyphene napsylate Allergy Rash/Hives Verified 08/04/17 17:35 [From Darvocet-N] codeine AdvReac Nausea Verified 08/04/17 17:35 Physical Exam Vitals: Vital Signs Temp Pulse Pulse Resp BP BP Pulse Ox 08/05/17 07:49 96.9 F L 121 H 18 119/82 97 08/05/17 04:00 123 H 24 144/81 95 08/05/17 00:00 134 H 24 08/04/17 21:28 134 H 24 150/74 98 08/04/17 21:05 98 F 121 H 18 130/67 98 08/04/17 20:19 124 H 20 133/56 98 08/04/17 19:48 122 H 18 133/89 96 08/04/17 19:30 139 H 20 138/91 99 08/04/17 18:57 121 H 18 131/66 98 08/04/17 18:31 141 H 18 109/75 97 08/04/17 18:01 147 H 20 105/52 95 08/04/17 17:18 98.2 F 141 H 20 123/73 97 Intake and Output 08/04/17 08/05/17 08/05/17 22:59 06:59 14:59 Intake Total 600 50 240 Output Total 1 Balance 600 49 240 Intake: Intake, IV Titration 50 Amount Diltiazem 50 mg In Sodium 50 Chloride 0.9% 40 ml @ 5 MG/HR 5 mls/hr IV .Q10H ONE Rx#:[id number] Oral 600 240 Output: Urine 1 Other: Weight 136.078 kg 137.5 kg PHYSICAL EXAMINATION: HEENT: Head is atraumatic, normocephalic. Pupils equal, round. Neck is supple. There is no elevated jugular venous pressure. HEART EXAMINATION: Heart S1 and S2 irregularly irregular, distant CHEST EXAMINATION: Lungs are clear to auscultation and precussion. No chest wall tenderness is noted on palpation or with deep breathing. ABDOMEN: Mildly distended, generalized tenderness noted, obese. Bowel sounds are heard. No organomegaly noted. EXTREMITIES: 1+ peripheral pulses with evidence of bilateral peripheral edema, the swelling in her left lower extremity is more significant than the right. NEUROLOGIC patient is awake, alert and oriented -3. . Results 08/04/17 17:49 08/04/17 17:49 Cardiac Enzymes 08/04/17 08/04/17 Range/Units 17:49 17:49 AST 35 (14-36) U/L CK-MB (CK-2) 2.9 H* (0.0-2.4) ng/mL Troponin I 0.012 (0.000-0.034) ng/mL Coagulation 08/04/17 Range/Units 17:49 PT 13.0 H (9.0-12.0) sec APTT 23.2 (22.0-30.0) sec CBC 08/04/17 Range/Units 17:49 WBC 6.8 (3.8-10.6) k/uL RBC 4.63 (3.80-5.40) m/uL Hgb 14.3 (11.4-16.0) gm/dL Hct 43.2 (34.0-46.0) % Plt Count 163 (150-450) k/uL Comprehensive Metabolic Panel 08/04/17 Range/Units 17:49 Sodium 143 (137-145) mmol/L Potassium 4.5 (3.5-5.1) mmol/L Chloride 103 (98-107) mmol/L Carbon Dioxide 23 (22-30) mmol/L BUN 25 H (7-17) mg/dL Creatinine 1.00 (0.52-1.04) mg/dL Glucose 222 H (74-99) mg/dL Calcium 9.4 (8.4-10.2) mg/dL AST 35 (14-36) U/L ALT 40 (9-52) U/L Alkaline Phosphatase 83 (38-126) U/L Total Protein 6.8 (6.3-8.2) g/dL Albumin 3.7 (3.5-5.0) g/dL Current Medications Generic Name Dose Route Start Last Admin Trade Name Freq PRN Reason Stop Dose Admin Furosemide 40 mg 08/05/17 09:00 08/05/17 08:01 Lasix PO 40 mg DAILY [facility] Administration Gabapentin 300 mg 08/05/17 09:00 08/05/17 08:02 Neurontin PO 300 mg TID [facility] Administration Glimepiride 2 mg 08/05/17 09:00 08/05/17 08:08 Amaryl PO Not Given DAILY [facility] Diltiazem HCl 50 mg/ Sodium 50 mls @ 0 mls/hr 08/05/17 06:15 Chloride IV .Q0M [facility] Protocol Titrate Levofloxacin 500 mg/ IV 100 mls @ 100 mls/hr 08/05/17 09:00 Solution IVPB Q24H [facility] Insulin Aspart 35 unit 08/04/17 21:00 08/04/17 23:40 Novolog Mix 70-30 Vial SQ 30 unit BID [facility] Administration Losartan Potassium 25 mg 08/05/17 09:00 08/05/17 08:02 Cozaar PO 25 mg DAILY [facility] Administration Miscellaneous Information 1 each 08/04/17 17:44 Rx Info: Iv Contrast Was Given MISCELLANE 08/06/17 17:45 DAILY PRN Per Protocol Naloxone HCl 0.2 mg 08/04/17 20:18 Narcan IV Q2M PRN Opioid Reversal Ondansetron HCl 4 mg 08/04/17 23:13 08/04/17 23:39 Zofran IVP 4 mg Q6HR PRN Administration Nausea And Vomiting Rivaroxaban 20 mg 08/05/17 18:30 Xarelto PO PC-SUPPER [facility] Tramadol HCl 50 mg 08/04/17 20:21 08/05/17 01:56 Ultram PO 50 mg DAILY PRN Administration Pain Intake and Output 08/04/17 08/05/17 08/05/17 22:59 06:59 14:59 Intake Total 600 50 240 Output Total 1 Balance 600 49 240 Intake: Intake, IV Titration 50 Amount Diltiazem 50 mg In Sodium 50 Chloride 0.9% 40 ml @ 5 MG/HR 5 mls/hr IV .Q10H ONE Rx#:[id number] Oral 600 240 Output: Urine 1 Other: Weight 136.078 kg 137.5 kg 08/04/17 17:49 08/04/17 17:49 EKG Interpretations (text) EKG shows atrial fibrillation with a rapid ventricular response, ST-T wave changes noted in the anterior lateral leads, similar to prior EKGs. Assessment and Plan Plan: Assessment and plan #1 symptoms of abdominal discomfort and bloating, CT of the abdomen reveals the 2 new hernias. #2 atrial fibrillation with rapid ventricular response, paroxysmal. #3 history of atrial fibrillation, paroxysmal, on Xarelto for anticoagulation. Patient was also discharged on Cardizem and metoprolol which she has not taken at home. Currently on Cardizem drip. #4 hypertension # 5 diabetes #6 hyperlipidemia #7 COPD #8 anxiety #9 nonischemic cardiomyopathy, patient did have a cardiac catheterization performed in 2014 which revealed a 30-40% mid LAD lesion Plan We will request an echocardiogram with Doppler study be performed. Continue Xarelto. Patient's last echocardiogram with Doppler study performed in 2014 revealed an ejection fraction of 40%. Patient states that she does take and beta ashley in the past and it her blood sugars significantly high so she refuses to take it. We may consider amiodarone in this patient, if the patient has considerable reduced LV function. Would also recommend the patient be on a statin because of her diabetes. I spoke with the patient in detail regarding the importance of compliance with her medications. Further recommendations to follow. DNP note has been reviewed, I agree with a documented findings and plan of care. Patient was seen and examined.
--- NOTE | 2017-08-05 08:58 | HP ---
HISTORY AND PHYSICAL CHIEF COMPLAINT: 67-year-old white female with abdominal pain and lower abdominal pain she states has been worse. She has hernias on CT scan in the hospital. She is having trouble passing stools and diarrhea and nausea, dry heaving. She has had history of hysterectomy, colostomy history of atrial fibrillation. I think she has been noncompliant with her beta ashley and calcium channel blockers, came in with atrial fibrillation with rapid ventricular response and lower abdominal pain. She is also complaining of burning in her legs. HOME MEDICATIONS: Include: 1. Xarelto 20 mg daily. 2. Lasix 40 mg daily. 3. Amaryl 2 mg daily. 4. Humalog Mix 75/25 35 units b.i.d. 5. Cozaar 25 daily. 6. Tramadol 50 daily. 7. Claritin 10 mg daily. ALLERGIES: DARVOCET, KEFLEX, MORPHINE, CODEINE. REVIEW OF SYSTEMS: 14 point review of systems is negative except for mentioned in HPI. 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 FAMILY HISTORY: Mother CVA, TIA, diabetes mellitus, hypertension. Father age 83. Sister had cancer of the pancreas and melanoma. PHYSICAL EXAMINATION: Heart rates in the 140s to 150s. Temperature 98.2, respiration 18-20, blood pressure is 105-123 over 50s to 70s. Abdomen is distended due to obesity and lower abdominal obvious hernias which are reducible. Cardiovascular: Irregular rhythm with heart rates in the 140s. Psych: She appears nervous and anxious. Cranial nerves are intact. Lungs are essentially clear. Hematology negative Homans. LABORATORY DATA: White count 6.8, hemoglobin 14.3, BUN 24, creatinine 1.0. INR is 1.4. Urine is positive for large leukocyte esterase, 20 white cells. ASSESSMENT: 1. Ventral hernia, large. 2. Atrial fibrillation with rapid ventricular response. 3. Diabetes mellitus. 4. Severe neuropathy of the legs. 5. Lumbar disc disease. 6. Obesity. 7. Urinary tract infection. Please see further orders in the chart. MMODL / IJN: [id number] /
[2017-08-05] MEDS ORDERED: LEVOFLOXACIN 500MG-D5W PMX 500 MG in DEXTROSE/WATER 1 100ML.BAG IVPB SCH (09:00)
--- NOTE | 2017-08-05 11:24 | P.PN ---
Progress Note - Text This is an addendum to the dictated cardiology consultation. The patient has a known history of chronic persistent atrial fibrillation, prior history of cardiomyopathy, mild to moderate CAD presents with symptoms of abdominal distention and bloating. She has chronic dyspnea on exertion and chronic peripheral edema. She has been noncompliant with taking her negative chronotropic drugs and has been in atrial fibrillation with rapid ventricular response. On her physical examination today her lungs are clear, she is in atrial flutter ablation with rapid ventricle response and has mild peripheral edema. Her EKG shows atrial fibrillation with right bundle branch block. I had a long discussion with the patient regarding the importance of beta ashley to control her ventricular response in view of her cardiomyopathy. The risk of worsening LV function and CHF was discussed with her. She was concerned about her blood sugar. She is willing at this time to take the beta blockers. She'll be started on Lopressor 50 mg twice a day and if the heart rate is stable the IV Cardizem will be stopped. We will obtain a repeat echocardiogram to further evaluate her systolic function and guide her treatment. In the meantime she will continue anticoagulation as initiated. Thank you for this consult we will follow with you.
--- NOTE | 2017-08-05 11:28 | P.GSCN ---
History of Present Illness Consult date: 08/05/17 Reason for Consult: This is a 67-year-old female who presented to the emergency room with complaints of some abdominal pain not feeling well. Patient's found have H fibrillation with rapid ventricular rate. She had a CAT scan performed which shows evidence of 2 incisional hernias. There is colon within the hernia. The patient denies any significant abdominal pain today. She is morbidly obese with a BMI 49. She's had a previous Fausto procedure and then reversal of colostomy performed approximately 20 years ago. Past Medical History Past Medical History: Atrial Fibrillation, Diabetes Mellitus, Deep Vein Thrombosis (DVT), GERD/Reflux, Hearing Disorder / Deafness, Neurologic Disorder , Osteoarthritis (OA), Pulmonary Embolus (PE) Additional Past Medical History / Comment(s): HX FACTOR 5 , DIZZINESS LATELY-HX VERTIGO SINCE 1991, HX MOTION SICKNESS ALL HER LIFE, HX IBS,TARSAL TUNNEL PROBLEMS NIKOLAY. ANKLES,PINCHED NERVE LOWER BACK, DDD, HAS POLYP LT CHEEK-BUT DR. IBRAHIM DOESN'T WANT PT TO HAVE REMOVED DVT-LT LEG & PE 2007, CHRONIC SINUS, LIVER ENZMES ELEVATED SPRING 2014,THYROID IS ENLARGED, WEARS GLASSES DISTANCE ONLY, FLUID IN LEFT EAR ALL THE TIME History of Any Multi-Drug Resistant Organisms: None Reported Past Surgical History: Bowel Resection, Cholecystectomy, Hysterectomy, Tonsillectomy, Tubal Ligation Additional Past Surgical History / Comment(s): CARDIOVERSION 2014 and 2016 @ [facility], LUMP REMOVED RT ARMPIT AREA, COLOSTOMY 1991 AFTER HYST R/T RUPTURED BOWEL REVISION OCTOBER 1991 Past Anesthesia/Blood Transfusion Reactions: Previous Problems w/ Anesthesia, Motion Sickness, Postoperative Nausea & Vomiting (PONV) Additional Past Anesthesia/Blood Transfusion Reaction / Comm: HX FACTOR 5 LIDEN, PONV- MOTION SICKNESS ALL HER LIFE- VERTIGO Past Psychological History: Anxiety Additional Psychological History / Comment(s): History of anxiety attacks Smoking Status: Never smoker Past Alcohol Use History: None Reported Past Drug Use History: None Reported - Past Family History Mother Family Medical History: CVA/TIA, Diabetes Mellitus, Hypertension Father History Unknown: Yes Additional Family Medical History / Comment(s): FATHER @ AGE 83- PT WAS 3 YRS OLD @ THE TIME- HX UNKNOWN Sister(s) Family Medical History: Cancer Additional Family Medical History / Comment(s): 5 SISTERS WITH THYROID- 3 SISTERS HAD CA- PANCREATIC,CERVICAL & MELANOMA Medications and Allergies Home Medications Medication Instructions Recorded Confirmed Type Rivaroxaban [Xarelto] 20 mg PO PC-SUPPER 09/20/14 08/04/17 History Furosemide [Lasix] 40 mg PO DAILY 07/20/17 08/04/17 History Glimepiride [Amaryl] 2 mg PO DAILY 07/20/17 08/04/17 History Insulin NPL/Insulin Lispro 35 unit SQ BID 07/20/17 08/04/17 History [humaLOG MIX 75-25 VIAL] Losartan Potassium [Cozaar] 25 mg PO DAILY 07/20/17 08/04/17 History traMADol HCL [Ultram] 50 mg PO DAILY PRN 07/20/17 08/04/17 History Loratadine [Claritin] 10 mg PO DAILY 08/04/17 08/04/17 History Allergies Allergy/AdvReac Type Severity Reaction Status Date / Time acetaminophen Allergy nausea Verified 08/04/17 17:35 [From Darvocet-N] from acetominophen after a few doses cephalexin monohydrate Allergy Rash/Hives Verified 08/04/17 17:35 [From Keflex] latex Allergy Rash/Hives Verified 08/04/17 17:35 morphine Allergy Itching/Teo Verified 08/04/17 17:35 sea propoxyphene napsylate Allergy Rash/Hives Verified 08/04/17 17:35 [From Darvocet-N] codeine AdvReac Nausea Verified 08/04/17 17:35 Surgical - Exam Vital Signs Temp Pulse Resp BP Pulse Ox 98.2 F 141 H 20 123/73 97 08/04/17 17:18 08/04/17 17:18 08/04/17 17:18 08/04/17 17:18 08/04/17 17:18 BMI 49 - General well developed, no distress - Eyes PERRL - ENT normal pinna - Neck no masses - Respiratory normal expansion - Cardiovascular Rhythm: regular - Abdomen Abdomen soft. Patient's abdomen is quite obese. She has a well-healed low midline scar. There is evidence of a colostomy scar in the left lower quadrant. At the superior portion of her midline scar there is a palpable mass. The mass appears to be reducible and is minimally tender. Results - Labs 08/04/17 17:49 08/04/17 17:49 Abnormal Lab Results - Last 24 Hours (Table) 08/04/17 08/04/17 08/04/17 Range/Units 17:49 17:49 17:49 RDW 15.8 H (11.5-15.5) % PT (9.0-12.0) sec INR (<1.2) BUN 25 H (7-17) mg/dL Glucose 222 H (74-99) mg/dL POC Glucose (mg/dL) (75-99) mg/dL CK-MB (CK-2) 2.9 H* (0.0-2.4) ng/mL Urine Appearance (Clear) Urine Protein (Negative) Urine Blood (Negative) Ur Leukocyte Esterase (Negative) Urine RBC (0-5) /hpf Urine WBC (0-5) /hpf Ur Squamous Epith Cells (0-4) /hpf Urine Bacteria (None) /hpf Urine Mucus (None) /hpf 08/04/17 08/04/17 08/04/17 Range/Units 17:49 18:01 21:06 RDW (11.5-15.5) % PT 13.0 H (9.0-12.0) sec INR 1.4 H (<1.2) BUN (7-17) mg/dL Glucose (74-99) mg/dL POC Glucose (mg/dL) 144 H (75-99) mg/dL CK-MB (CK-2) (0.0-2.4) ng/mL Urine Appearance Cloudy H (Clear) Urine Protein Trace H (Negative) Urine Blood Small H (Negative) Ur Leukocyte Esterase Large H (Negative) Urine RBC 14 H (0-5) /hpf Urine WBC 28 H (0-5) /hpf Ur Squamous Epith Cells 6 H (0-4) /hpf Urine Bacteria Rare H (None) /hpf Urine Mucus Rare H (None) /hpf 08/05/17 Range/Units 06:24 RDW (11.5-15.5) % PT (9.0-12.0) sec INR (<1.2) BUN (7-17) mg/dL Glucose (74-99) mg/dL POC Glucose (mg/dL) 123 H (75-99) mg/dL CK-MB (CK-2) (0.0-2.4) ng/mL Urine Appearance (Clear) Urine Protein (Negative) Urine Blood (Negative) Ur Leukocyte Esterase (Negative) Urine RBC (0-5) /hpf Urine WBC (0-5) /hpf Ur Squamous Epith Cells (0-4) /hpf Urine Bacteria (None) /hpf Urine Mucus (None) /hpf Microbiology - Last 24 Hours (Table) 08/04/17 18:01 Urine Culture - Preliminary Urine,Voided Diabetes panel 08/04/17 Range/Units 17:49 Sodium 143 (137-145) mmol/L Potassium 4.5 (3.5-5.1) mmol/L Chloride 103 (98-107) mmol/L Carbon Dioxide 23 (22-30) mmol/L BUN 25 H (7-17) mg/dL Creatinine 1.00 (0.52-1.04) mg/dL Glucose 222 H (74-99) mg/dL Calcium 9.4 (8.4-10.2) mg/dL AST 35 (14-36) U/L ALT 40 (9-52) U/L Alkaline Phosphatase 83 (38-126) U/L Total Protein 6.8 (6.3-8.2) g/dL Albumin 3.7 (3.5-5.0) g/dL Calcium panel 08/04/17 Range/Units 17:49 Calcium 9.4 (8.4-10.2) mg/dL Albumin 3.7 (3.5-5.0) g/dL Pituitary panel 08/04/17 Range/Units 17:49 Sodium 143 (137-145) mmol/L Potassium 4.5 (3.5-5.1) mmol/L Chloride 103 (98-107) mmol/L Carbon Dioxide 23 (22-30) mmol/L BUN 25 H (7-17) mg/dL Creatinine 1.00 (0.52-1.04) mg/dL Glucose 222 H (74-99) mg/dL Calcium 9.4 (8.4-10.2) mg/dL Adrenal panel 08/04/17 Range/Units 17:49 Sodium 143 (137-145) mmol/L Potassium 4.5 (3.5-5.1) mmol/L Chloride 103 (98-107) mmol/L Carbon Dioxide 23 (22-30) mmol/L BUN 25 H (7-17) mg/dL Creatinine 1.00 (0.52-1.04) mg/dL Glucose 222 H (74-99) mg/dL Calcium 9.4 (8.4-10.2) mg/dL Total Bilirubin 1.3 (0.2-1.3) mg/dL AST 35 (14-36) U/L ALT 40 (9-52) U/L Alkaline Phosphatase 83 (38-126) U/L Total Protein 6.8 (6.3-8.2) g/dL Albumin 3.7 (3.5-5.0) g/dL Assessment and Plan Assessment: Incisional hernia. Patient will need to be medically optimized prior to any surgical intervention. We will plan on outpatient repair of her incisional hernia on she has been cleared by medicine and cardiology.
[2017-08-05 11:33] LABS: Glucose,Whole Blood 205 mg/dL (75-99)
[2017-08-05] MEDS: ATORVASTATIN 40 MG TAB PO SCH ×2 (11:40→11:42)
[2017-08-05] MEDS: METOPROLOL TARTRATE 50 MG TAB PO SCH ×2 (12:23→22:04)
--- NOTE | 2017-08-05 15:12 | ECHOF ---
Referral Reason:afib MEASUREMENTS -------- HEIGHT: 167.6 cm WEIGHT: 137.4 kg BP: 119/82 RVIDd: 3.5 cm (< 3.3) IVSd: 1.3 cm (0.6 - 1.1) LVIDd: 5.0 cm (3.9 - 5.3) LVPWd: 1.4 cm (0.6 - 1.1) IVSs: 2.0 cm LVIDs: 4.1 cm LVPWs: 1.6 cm LA Diam: 4.3 cm (2.7 - 3.8) Ao Diam: 3.2 cm (2.0 - 3.7) AV Cusp: 2.4 cm (1.5 - 2.6) MV EXCURSION: 17.180 mm (> 18.000) MV EF SLOPE: 85 mm/s (70 - 150) EPSS: 1.7 cm RAP: 15.00 mmHg RVSP: 50.20 mmHg FINDINGS -------- Atrial fibrillation. This was a technically difficult study with suboptimal views. The left ventricular size is normal. There is moderate concentric left ventricular hypertrophy. T here is severe global hypokinesis of LV . Overall left ventricular systolic function is severely im paired with, an EF between 20 - 25 %. The right ventricle is mildly enlarged. The left atrium is moderately dilated. The right atrium was not well visualized. 3 ml of Lumason was utilized for enhancement of images. The aortic valve was not well visualized. The mitral valve was not well visualized. Mild mitral regurgitation is present. Mild tricuspid regurgitation present. There is moderate pulmonary hypertension. The right ventric ular systolic pressure, as measured by Doppler, is 50.20mmHg. The pulmonic valve was not well visualized. The aortic root size is normal. The inferior vena cava is dilated with no significant inspiratory collapse which is consistent estima jarvis right atrial pressure of >15 mmHg. There is no pericardial effusion. CONCLUSIONS -------- 1. Atrial fibrillation. 2. This was a technically difficult study with suboptimal views. 3. The left ventricular size is normal. 4. There is moderate concentric left ventricular hypertrophy. 5. There is severe global hypokinesis of LV . 6. Overall left ventricular systolic function is severely impaired with, an EF between 20 - 25 %. 7. The right ventricle is mildly enlarged. 8. The left atrium is moderately dilated. 9. The right atrium was not well visualized. 10. 3 ml of Lumason was utilized for enhancement of images. 11. The aortic valve was not well visualized. 12. The mitral valve was not well visualized. 13. Mild mitral regurgitation is present. 14. Mild tricuspid regurgitation present. 15. There is moderate pulmonary hypertension. 16. The pulmonic valve was not well visualized. 17. The aortic root size is normal. 18. The inferior vena cava is dilated with no significant inspiratory collapse which is consistent es timated right atrial pressure of >15 mmHg. 19. There is no pericardial effusion. ON AIR TALENT: Thais Garcia RDCS
[2017-08-05 16:48] LABS: Glucose,Whole Blood 214 mg/dL (75-99)
--- NOTE | 2017-08-05 17:32 | P.OBCN ---
History of Present Illness Consult date: 08/05/17 Requesting physician: Mehdi Becerril Reason for consult: pelvic infection Chief complaint: vaginal discharge History of present illness: Danika is a very pleasant 67-year-old female who appears older than her stated age. She reports that approximately 3 weeks ago she began having a discharge it was noted to be greenish and pinkish in color somewhat watery and this is a new finding for her over the last 3 weeks. She relates that she did have a yeast infection and was treated in April and had not had any symptoms since that time. In a lengthy discussion with the patient she is reports that she had a total abdominal hysterectomy with she believes bilateral salpingo- oophorectomy in 1991 with some type of bowel injury requiring additional surgery. She is unclear on what exactly occurred. She will however relates that she had a CAT scan approximately November 2016 that showed a possible shadow of the uterus on that CAT scan and she relates that her primary care provider wanted her to have a gynecologic evaluation and pelvic ultrasound for same. Reviewing the CAT scan there is no mention of female organs's with thick this is unlikely. I do not have records that go back to 1991 so I cannot verify what Dr. Haro did in his operation but it seems very unlikely that she has even ovaries left alone her uterus. She relates that she has some concerns over her estrogen level but is seeing a interior design coordinator for this and I do not have records to review this information. We'll plan to obtain ultrasound of the pelvis to rule out other abnormalities attention should obviously be made to the vaginal cuff area but she refuses a transvaginal ultrasound relates that she only wants a transabdominal. Vaginal cultures were obtained to rule out vaginal infection. Due to her morbid obesity and poor health a decision to defer a complete pelvic exam was done until next week when I can see her in the office and have her positioned correctly. On physical exam this is a morbidly obese female again appears older than her stated age. Overall complete physical exam will be deferred until I can see her in the office and have for properly positioned in a lithotomy position. I will also need most likely a large speculum and a directed light source. For her comfort we are planning on doing this outpatient. Assessment vaginal discharge culture obtained Plan ultrasound of the pelvis and await cultures as well as outpatient LV exam to verify no other gross pathology. Past Medical History Past Medical History: Atrial Fibrillation, Diabetes Mellitus, Deep Vein Thrombosis (DVT), GERD/Reflux, Hearing Disorder / Deafness, Neurologic Disorder , Osteoarthritis (OA), Pulmonary Embolus (PE) Additional Past Medical History / Comment(s): HX FACTOR 5 , DIZZINESS LATELY-HX VERTIGO SINCE 1991, HX MOTION SICKNESS ALL HER LIFE, HX IBS,TARSAL TUNNEL PROBLEMS NIKOLAY. ANKLES,PINCHED NERVE LOWER BACK, DDD, HAS POLYP LT CHEEK-BUT DR. IBRAHIM DOESN'T WANT PT TO HAVE REMOVED DVT-LT LEG & PE 2007, CHRONIC SINUS, LIVER ENZMES ELEVATED SPRING 2014,THYROID IS ENLARGED, WEARS GLASSES DISTANCE ONLY, FLUID IN LEFT EAR ALL THE TIME History of Any Multi-Drug Resistant Organisms: None Reported Past Surgical History: Bowel Resection, Cholecystectomy, Hysterectomy, Tonsillectomy, Tubal Ligation Additional Past Surgical History / Comment(s): CARDIOVERSION 2014 and [address] [facility], LUMP REMOVED RT ARMPIT AREA, COLOSTOMY 1991 AFTER HYST R/T RUPTURED BOWEL REVISION OCTOBER 1991 Past Anesthesia/Blood Transfusion Reactions: Previous Problems w/ Anesthesia, Motion Sickness, Postoperative Nausea & Vomiting (PONV) Additional Past Anesthesia/Blood Transfusion Reaction / Comm: HX FACTOR 5 LIDEN, PONV- MOTION SICKNESS ALL HER LIFE- VERTIGO Past Psychological History: Anxiety Additional Psychological History / Comment(s): History of anxiety attacks Smoking Status: Never smoker Past Alcohol Use History: None Reported Past Drug Use History: None Reported - Past Family History Mother Family Medical History: CVA/TIA, Diabetes Mellitus, Hypertension Father History Unknown: Yes Additional Family Medical History / Comment(s): FATHER @ AGE 83- PT WAS 3 YRS OLD @ THE TIME- HX UNKNOWN Sister(s) Family Medical History: Cancer Additional Family Medical History / Comment(s): 5 SISTERS WITH THYROID- 3 SISTERS HAD CA- PANCREATIC,CERVICAL & MELANOMA Medications and Allergies Home Medications Medication Instructions Recorded Confirmed Type Rivaroxaban [Xarelto] 20 mg PO PC-SUPPER 09/20/14 08/04/17 History Furosemide [Lasix] 40 mg PO DAILY 07/20/17 08/04/17 History Glimepiride [Amaryl] 2 mg PO DAILY 07/20/17 08/04/17 History Insulin NPL/Insulin Lispro 35 unit SQ BID 07/20/17 08/04/17 History [humaLOG MIX 75-25 VIAL] Losartan Potassium [Cozaar] 25 mg PO DAILY 07/20/17 08/04/17 History traMADol HCL [Ultram] 50 mg PO DAILY PRN 07/20/17 08/04/17 History Loratadine [Claritin] 10 mg PO DAILY 08/04/17 08/04/17 History Allergies Allergy/AdvReac Type Severity Reaction Status Date / Time acetaminophen Allergy nausea Verified 08/04/17 17:35 [From Darvocet-N] from acetominophen after a few doses cephalexin monohydrate Allergy Rash/Hives Verified 08/04/17 17:35 [From Keflex] latex Allergy Rash/Hives Verified 08/04/17 17:35 morphine Allergy Itching/Teo Verified 08/04/17 17:35 sea propoxyphene napsylate Allergy Rash/Hives Verified 08/04/17 17:35 [From Darvocet-N] codeine AdvReac Nausea Verified 08/04/17 17:35 Exam Osteopathic Statement: *. No significant issues noted on an osteopathic structural exam other than those noted in the History and Physical/Consult. - Vital Signs Vital signs: Vital Signs Temp Pulse Pulse Resp BP BP Pulse Ox 08/05/17 15:41 97.3 F L 83 18 108/74 96 08/05/17 11:34 97.3 F L 106 H 18 108/66 96 08/05/17 07:49 96.9 F L 121 H 18 119/82 97 08/05/17 04:00 123 H 24 144/81 95 08/05/17 00:00 134 H 24 08/04/17 21:28 134 H 24 150/74 98 08/04/17 21:05 98 F 121 H 18 130/67 98 08/04/17 20:19 124 H 20 133/56 98 08/04/17 19:48 122 H 18 133/89 96 08/04/17 19:30 139 H 20 138/91 99 08/04/17 18:57 121 H 18 131/66 98 08/04/17 18:31 141 H 18 109/75 97 08/04/17 18:01 147 H 20 105/52 95 Intake and Output 08/05/17 08/05/17 08/05/17 06:59 14:59 22:59 Intake Total 50 786 50 Output Total 1 Balance 49 786 50 Intake: Intake, IV Titration 50 310 50 Amount Diltiazem 50 mg In Sodium 50 Chloride 0.9% 40 ml @ 5 MG/HR 5 mls/hr IV .Q10H ONE Rx#:[id number] Diltiazem 50 mg In Sodium 50 50 Chloride 0.9% 40 ml @ Titrate IV .Q0M [facility] Rx#: [id number] Levofloxacin 500Mg-D5w 100 Pmx 500 mg In Dextrose/ Water 1 100ml.bag @ 100 mls/hr IVPB Q24H [facility] Rx#: [id number] Sodium Chloride 0.9% 500 160 ml @ 999 mls/hr IV .Q31M [facility] Rx#:[id number] Oral 476 Output: Urine 1 Other: # Voids 4 Weight 137.5 kg Results Result Diagrams: 08/04/17 17:49 08/04/17 17:49 Abnormal Lab Results - Last 24 Hours (Table) 08/04/17 08/04/17 08/04/17 Range/Units 17:49 17:49 17:49 RDW 15.8 H (11.5-15.5) % PT (9.0-12.0) sec INR (<1.2) BUN 25 H (7-17) mg/dL Glucose 222 H (74-99) mg/dL POC Glucose (mg/dL) (75-99) mg/dL CK-MB (CK-2) 2.9 H* (0.0-2.4) ng/mL Urine Appearance (Clear) Urine Protein (Negative) Urine Blood (Negative) Ur Leukocyte Esterase (Negative) Urine RBC (0-5) /hpf Urine WBC (0-5) /hpf Ur Squamous Epith Cells (0-4) /hpf Urine Bacteria (None) /hpf Urine Mucus (None) /hpf 08/04/17 08/04/17 08/04/17 Range/Units 17:49 18:01 21:06 RDW (11.5-15.5) % PT 13.0 H (9.0-12.0) sec INR 1.4 H (<1.2) BUN (7-17) mg/dL Glucose (74-99) mg/dL POC Glucose (mg/dL) 144 H (75-99) mg/dL CK-MB (CK-2) (0.0-2.4) ng/mL Urine Appearance Cloudy H (Clear) Urine Protein Trace H (Negative) Urine Blood Small H (Negative) Ur Leukocyte Esterase Large H (Negative) Urine RBC 14 H (0-5) /hpf Urine WBC 28 H (0-5) /hpf Ur Squamous Epith Cells 6 H (0-4) /hpf Urine Bacteria Rare H (None) /hpf Urine Mucus Rare H (None) /hpf 08/05/17 08/05/17 08/05/17 Range/Units 06:24 11:29 16:46 RDW (11.5-15.5) % PT (9.0-12.0) sec INR (<1.2) BUN (7-17) mg/dL Glucose (74-99) mg/dL POC Glucose (mg/dL) 123 H 205 H 214 H (75-99) mg/dL CK-MB (CK-2) (0.0-2.4) ng/mL Urine Appearance (Clear) Urine Protein (Negative) Urine Blood (Negative) Ur Leukocyte Esterase (Negative) Urine RBC (0-5) /hpf Urine WBC (0-5) /hpf Ur Squamous Epith Cells (0-4) /hpf Urine Bacteria (None) /hpf Urine Mucus (None) /hpf Microbiology - Last 24 Hours (Table) 08/04/17 18:01 Urine Culture - Preliminary Urine,Voided
[2017-08-05] MEDS: RIVAROXABAN 20 MG TAB PO SCH (17:43)
[2017-08-05 18:45] LABS: Glucose,Whole Blood 220 mg/dL (75-99)
[2017-08-05 20:54] LABS: Glucose,Whole Blood 207 mg/dL (75-99)
[2017-08-05] MEDS ORDERED: BISACODYL 10 MG SUPP RECTAL PRN (21:00)
[2017-08-06 06:08] LABS: Glucose,Whole Blood 148 mg/dL (75-99)
[2017-08-06 06:49] LABS: Potassium 5.5 mmol/L (3.5-5.1)
[2017-08-06] MEDS: ATORVASTATIN 40 MG TAB PO SCH (09:24)
[2017-08-06] MEDS: GABAPENTIN 300 MG CAP PO SCH ×3 (09:24→20:36)
[2017-08-06] MEDS: METOPROLOL TARTRATE 50 MG TAB PO SCH ×2 (09:25→20:36)
[2017-08-06] MEDS: FUROSEMIDE 40 MG TAB PO SCH (09:26)
[2017-08-06] MEDS: LEVOFLOXACIN 500 MG TAB PO SCH (09:26)
[2017-08-06] MEDS: GLIMEPIRIDE 2 MG TAB PO SCH (09:27)
[2017-08-06] MEDS: LOSARTAN 25 MG TAB PO SCH (09:28)
[2017-08-06] MEDS: INSULN ASP PRT/INSULIN ASPART 100 UNIT/ML 10 ML VIAL SQ SCH ×2 (09:34→20:41)
--- NOTE | 2017-08-06 10:21 | PN ---
PROGRESS NOTE DATE OF SERVICE: 08/06/2017. HISTORY: Ms. Shahid is a 67-year-old female with known chronic persistent atrial fibrillation, history of cardiomyopathy with mild coronary artery disease, who presented with abdominal bloating. She has diarrhea at this time. Her bloating is better. She denies any chest pain. Her breathing has been stable. She denies any symptoms of dizziness or palpitations. Hemodynamically she is stable. Her ventricular response is under better control after the addition of the beta ashley. She underwent echocardiogram which revealed a severely impaired systolic function with global hypokinesis with mild mitral and tricuspid regurgitation. She continues to be, at this time, on Lipitor 40 mg daily, Lasix 40 mg daily, glimepiride, losartan 25 mg daily, metoprolol tartrate 50 mg twice a day, and Xarelto 20 mg daily. PHYSICAL EXAMINATION: Blood pressure 113/80 with a heart rate in the 90s. Lungs clear. Heart irregular regular, S1, S2, no S3, no rub with a systolic murmur. Abdomen is soft, obese, nontender. Extremities trace to 1+ edema. LAB DATA: Revealed BUN and creatinine 31 and 1.39, potassium 5.5. IMPRESSION: 1. Abdominal discomfort, improving. 2. Severe nonischemic cardiomyopathy. 3. Atrial fibrillation, chronic and persistent, under better rate control. 4. Coronary artery disease, nonobstructive by prior cardiac catheterization. 5. Hyperlipidemia. 6. Diabetes mellitus. 7. Obesity. RECOMMENDATION: I will continue current therapy. We will continue at present dose of beta ashley. I will repeat her renal function tomorrow and depending on that, further recommendations will be made. In the meantime, we will try to increase her level of activity. Depending on her progress, further recommendations will be made. MMODL / IJN: [id number] /
--- NOTE | 2017-08-06 10:36 | P.PN ---
Progress Note - Text Progress Note Date: 08/06/17 The patient is feeling better today. She has minimal dull pain. She is undergoing a vaginal ultrasound for workup of her vaginal discharge. On exam her vital signs are stable. Her abdomen soft obese. There is a palpable incisional hernia located superior portion of her low midline scar. Chronic incisional hernia. The patient will be scheduled for outpatient repair of her incisional hernia when she is medically stable. We will follow with you.
--- NOTE | 2017-08-06 11:02 | US ---
EXAMINATION TYPE: US pelvic limited DATE OF EXAM: 08/06/2017 COMPARISON: CT 2018 CLINICAL HISTORY: pelvic pain. Vaginal discharge and pelvic cramping x 3 to 4 weeks, 2, para 2, total hysterectomy 1991 TECHNIQUE: . Transabdominal sonographic images of the pelvis were acquired. Date of LMP: 1991 EXAM MEASUREMENTS: Uterus: surgically absent Endometrial Stripe: surgically absent Right Ovary: surgically absent Left Ovary: surgically absent Difficult and limited study due to patient body habitus 1. Uterus: surgically absent 2. Endometrium: surgically absent 3. Right Ovary: surgically absent 4. Left Ovary: surgically absent 5. Bilateral Adnexa: appears wnl as seen 6. Posterior cul-de-sac: appears wnl as seen IMPRESSION: NORMAL POSTHYSTERECTOMY PELVIS.
[2017-08-06 11:47] LABS: Glucose,Whole Blood 194 mg/dL (75-99)
[2017-08-06] MEDS: INSULIN ASPART 100 UNIT/ML 1 ML 10 ML VIAL SQ SCH ×3 (12:25→20:41)
[2017-08-06 16:57] LABS: Glucose,Whole Blood 77 mg/dL (75-99)
[2017-08-06] MEDS: RIVAROXABAN 20 MG TAB PO SCH (20:35)
[2017-08-06 20:41] LABS: Glucose,Whole Blood 117 mg/dL (75-99)
--- NOTE | 2017-08-06 20:59 | PN ---
PROGRESS NOTE SUBJECTIVE: 67-year-old white female with atrial fibrillation, rapid ventricular response, ventral hernias. Cardiology is trying to get atrial fibrillation under control. Surgery is evaluating her for ventral hernias. Neuropathies is improving with Neurontin. Vital signs stable. Afebrile. Cardiovascular S1, S2. LUNGS: Transmitted upper sounds. GI is ventral hernia. Distended abdomen the lower suprapubic areas. Hematology negative Homans. ASSESSMENT: 1. Ventricular response ventral hernias, acute abdominal pain. 2. Hypertension. 3. Diabetes mellitus. 4. Peripheral diabetic neuropathy. Continue with Neurontin. Cardiology to assess atrial fibrillation. MMODL / IJN: [id number] /
[2017-08-06 23:36] LABS: Hemoglobin A1C 8.8 % (4.0-6.0)
[2017-08-07 00:42] LABS: Glucose,Whole Blood 101 mg/dL (75-99)
[2017-08-07 03:02] LABS: Glucose,Whole Blood 103 mg/dL (75-99)
[2017-08-07] MEDS: traMADol 50 MG TAB PO PRN (03:53)
[2017-08-07 04:19] VITALS: TEMP 97
[2017-08-07 05:54] LABS: Calcium 9.2 mg/dL (8.4-10.2); Potassium 4.9 mmol/L (3.5-5.1)
[2017-08-07 06:12] LABS: Glucose,Whole Blood 99 mg/dL (75-99)
[2017-08-07] MEDS: INSULIN ASPART 100 UNIT/ML 1 ML 10 ML VIAL SQ SCH ×3 (06:45→17:32)
[2017-08-07] MEDS: METOPROLOL TARTRATE 50 MG TAB PO SCH (09:10)
[2017-08-07] MEDS: GLIMEPIRIDE 2 MG TAB PO SCH (09:10)
[2017-08-07] MEDS: LEVOFLOXACIN 500 MG TAB PO SCH (09:10)
[2017-08-07] MEDS: FUROSEMIDE 40 MG TAB PO SCH (09:10)
[2017-08-07] MEDS: LOSARTAN 25 MG TAB PO SCH (09:10)
[2017-08-07] MEDS: GABAPENTIN 300 MG CAP PO SCH ×2 (09:10→16:23)
[2017-08-07] MEDS: ATORVASTATIN 40 MG TAB PO SCH ×2 (09:11→09:17)
[2017-08-07] MEDS: INSULN ASP PRT/INSULIN ASPART 100 UNIT/ML 10 ML VIAL SQ SCH (09:21)
[2017-08-07 09:30] VITALS: RESP 18
--- NOTE | 2017-08-07 11:12 | CDI ---
Last Revision, March 2017 Documentation Clarification Form Date: 08/07/17 1105 From: Khalida Sanabria RN, CCDS Admit Date: 08/04/2017 8:20:00 PM Patient Name: Danika Shahid Visit Number: [id number] ATTENTION: The Clinical Documentation Specialists (CDI) and [facility] Coding Staff appreciate your assistance in clarifying documentation. Please respond to the clarification below the line at the bottom and electronically sign. The CDI & [facility] Coding staff will review the response and follow-up if needed. Please note: Queries are made part of the Legal Health Record. If you have any questions, please contact the author of this message via ITS. Dr. Mehdi Becerril Pt is noted to have an increasing BUN, Creatinine, and Decreasing GFR. Please indicate Clinical Significance of lab results. History/Risk Factors: Diareha, nausea, dry heaving, AF, DM< FVT, GERD, Factor 5 Deficiency Clinical Indicators: 07/20/17 Baseline BUN/Cr/GFR: 20/05/59 Patients Current BUN: CR: 04/24.39/1.5 GFR: 60/40/36 Treatment: IVF: 0.9% 500 cc fluid bolus In order to capture the severity of condition, please clarify if the condition signifies: Acute renal failure, Please specify etiology (if known): Cortical Necrosis Medullary Necrosis Tubular Necrosis Acute kidney injury Acute on chronic renal failure CKD Stage 1 GFR >90 CKD Stage 2 GFR 60-89 CKD Stage 3 GFR 30-59 CKD Stage 4 GFR 15-29 CKD Stage 5 GFR <15 Chronic renal failure/Chronic Kidney disease (CKD) please stage if known CKD Stage 1 GFR >90 CKD Stage 2 GFR 60-89 CKD Stage 3 GFR 30-59 CKD Stage 4 GFR 15-29 CKD Stage 5 GFR <15 ESRD Other, please specify Unable to determine Please continue to document in your progress notes and discharge summary in order to capture severity of illness and risk of mortality. Include clinical findings that support your diagnosis. MTDD
[2017-08-07 12:02] LABS: Glucose,Whole Blood 118 mg/dL (75-99)
--- NOTE | 2017-08-07 14:00 | P.PN ---
Subjective Progress Note Date: 08/07/17 67-year-old female resting in bed states the abdominal discomfort improved. Patient is aware that the incisional hernia located to the superior portion of her low mid line scar will be addressed in the outpatient setting. Denies any nausea vomiting. Vital signs stable abdomen soft nondistended Objective - Vital Signs Vital signs: Vital Signs Temp 97 F L 08/07/17 08:00 Pulse 91 08/07/17 12:00 Resp 18 08/07/17 12:00 BP 110/71 08/07/17 12:00 Pulse Ox 97 08/07/17 12:00 Intake & Output 08/06/17 08/07/17 08/07/17 18:59 06:59 18:59 Intake Total 720 180 Output Total 500 Balance 220 180 Weight 128.6 kg Intake: Oral 720 180 Output: Urine 500 Other: Voiding Method Bedside Commode Bedside Commode # Voids 1 1 - Exam Exam Alert oriented resting in bed appears no acute distress Lungs adequate air movement bilaterally on room air Heart S1-S2 audible regular Abdomen soft palpable incision hernia noted superior portion of her low midline scar bowel tones present nondistended no nausea no vomiting Extremities no edema noted - Labs CBC & Chem 7: 08/04/17 17:49 08/07/17 05:22 Labs: Abnormal Lab Results - Last 24 Hours (Table) 08/06/17 08/06/17 08/07/17 Range/Units 06:14 20:39 00:39 BUN (7-17) mg/dL Creatinine (0.52-1.04) mg/dL Glucose (74-99) mg/dL POC Glucose (mg/dL) 117 H 101 H (75-99) mg/dL Hemoglobin A1c 8.8 H (4.0-6.0) % 08/07/17 08/07/17 08/07/17 Range/Units 02:50 05:22 12:00 BUN 39 H (7-17) mg/dL Creatinine 1.50 H (0.52-1.04) mg/dL Glucose 102 H (74-99) mg/dL POC Glucose (mg/dL) 103 H 118 H (75-99) mg/dL Hemoglobin A1c (4.0-6.0) % Microbiology - Last 24 Hours (Table) 08/04/17 17:49 Blood Culture - Preliminary Blood No Growth after 48 hours Assessment and Plan Assessment: Impression Morbid obesity BMI 45 Chronic incisional hernia History of a previous Fausto procedure with a reversal of colostomy performed 30 years prior Plan No evidence of an acute surgical abdomen at this time Patient will be scheduled for an outpatient repair of her incisional hernia when medically stable from cardiology and pulmonary this was discussed with the patient Outpatient follow-up recommended Will follow with you The above impression and plan of care have been discussed and directed by signing physician. Janae Salvador nurse practitioner acting as scribe for signing physician.
--- NOTE | 2017-08-07 14:09 | P.PN ---
Subjective Progress Note Date: 08/07/17 This is a 67-year-old female with history of hypertension, diabetes, obesity, irritable nabor syndrome, factor V Leiden carrier, cardiomyopathy patient underwent a cardiac catheterization and 2015 which revealed a right dominant system. There was a 30-40% mid LAD lesion at that time, no significant disease in the nondominant circumflex or RCA. Patient also has history of COPD, hyperlipidemia, paroxysmal atrial fibrillation. On this most recent admission within one month ago, patient was discharged home with a Cardizem and metoprolol which she states she refuses to take. She does take Xarelto for anticoagulation. She presents to the hospital on this occasion with symptoms of abdominal discomfort with associated bloating. Patient states she's been significantly constipated, she used to have a notable bowel with frequent diarrhea, but lately she states she's been quite constipated. Patient also states she's noted more swelling in her lower extremities than usual. She denies any shortness of breath, no chest discomfort. Cardiology consultation was requested because of atrial fibrillation with rapid ventricular response. Her EKG on presentation here showed atrial fibrillation with rapid ventricular response anterior lateral T-wave changes. Blood pressure on arrival here 122/ 70 with a heart rate of 140, 97% on room air, temperature 98.2. White blood cell count is normal, hemoglobin 14.3, platelet count 163. Sodium 143, potassium 4.5, BUN 25, creatinine 1.0. Blood sugar on arrival 222. Troponin 0.012, amylase and lipase are normal. Magnesium 2.2. Liver enzymes normal. Positive UTI. CAT scan of the abdomen was performed which revealed subcutaneous edema over the entire anterior abdomen, there are 2 small ventral hernia is noted, one contains a portion of the transverse colon without evidence of colonic obstruction. The hernia is new as compared with old exam. There is a second small ventral hernia that contains omental fat and appears stable. Fatty infiltration of the liver also noted. At the time of my examination this morning, she continues to feel bloated, mild abdominal discomfort. Denies any dizziness or lightheadedness, no palpitations, no chest discomfort or shortness of breath. 08/07/2017 was seen and examined this morning, denies any abdominal discomfort, bloating is improved, breathing is stable. Hemodynamically stable. Heart rate under good control. Creatinine today is 1.5. Objective - Vital Signs Vital signs: Vital Signs Temp 97 F L 08/07/17 08:00 Pulse 91 08/07/17 12:00 Resp 18 08/07/17 12:00 BP 110/71 08/07/17 12:00 Pulse Ox 97 08/07/17 12:00 Intake & Output 08/06/17 08/07/17 08/07/17 18:59 06:59 18:59 Intake Total 720 180 Output Total 500 Balance 220 180 Weight 128.6 kg Intake: Oral 720 180 Output: Urine 500 Other: Voiding Method Bedside Commode Bedside Commode # Voids 1 1 - Exam PHYSICAL EXAMINATION: HEENT: Head is atraumatic, normocephalic. Pupils equal, round. Neck is supple. There is no elevated jugular venous pressure. HEART EXAMINATION: Heart S1 and S2 irregularly irregular, distant CHEST EXAMINATION: Lungs are clear to auscultation and precussion. No chest wall tenderness is noted on palpation or with deep breathing. ABDOMEN: Soft and nontender Bowel sounds are heard. No organomegaly noted. EXTREMITIES: 1+ peripheral pulses with evidence of bilateral peripheral edema, the swelling in her left lower extremity is more significant than the right. NEUROLOGIC patient is awake, alert and oriented -3. - Labs CBC & Chem 7: 08/04/17 17:49 08/07/17 05:22 Labs: Abnormal Lab Results - Last 24 Hours (Table) 08/06/17 08/06/17 08/07/17 Range/Units 06:14 20:39 00:39 BUN (7-17) mg/dL Creatinine (0.52-1.04) mg/dL Glucose (74-99) mg/dL POC Glucose (mg/dL) 117 H 101 H (75-99) mg/dL Hemoglobin A1c 8.8 H (4.0-6.0) % 08/07/17 08/07/17 08/07/17 Range/Units 02:50 05:22 12:00 BUN 39 H (7-17) mg/dL Creatinine 1.50 H (0.52-1.04) mg/dL Glucose 102 H (74-99) mg/dL POC Glucose (mg/dL) 103 H 118 H (75-99) mg/dL Hemoglobin A1c (4.0-6.0) % Microbiology - Last 24 Hours (Table) 08/04/17 17:49 Blood Culture - Preliminary Blood No Growth after 48 hours Assessment and Plan Plan: Assessment and plan #1 symptoms of abdominal discomfort and bloating, CT of the abdomen reveals the 2 new hernias. #2 atrial fibrillation with rapid ventricular response, paroxysmal. #3 history of atrial fibrillation, paroxysmal, on Xarelto for anticoagulation. Patient was also discharged on Cardizem and metoprolol which she has not taken at home. Currently on Cardizem drip. #4 hypertension # 5 diabetes #6 hyperlipidemia #7 COPD #8 anxiety #9 nonischemic cardiomyopathy, patient did have a cardiac catheterization performed in 2014 which revealed a 30-40% mid LAD lesion Plan Echocardiogram with Doppler study which was performed revealed an ejection fraction of 20-25%. We will continue the patient on Lipitor 40 mg daily, Lasix 40 mg daily, losartan 25 mg daily, metoprolol 50 mg twice a day and xarelto 20 mg daily. Sitter the addition of Aldactone as an outpatient. She may be able to be discharged home from cardiology's perspective, we'll make her a follow-up appointment to see Dr. JODIE Lara in the office one week. Lytes BUN and creatinine in a week. DNP note has been reviewed, I agree with a documented findings and plan of care. Patient was seen and examined.
[2017-08-07 16:38] LABS: Glucose,Whole Blood 71 mg/dL (75-99)
[2017-08-07] MEDS: RIVAROXABAN 20 MG TAB PO SCH (17:33)
[2017-08-07 17:42] VITALS: BP 105/68; PULSE 80
[2017-08-08] MEDS ORDERED: LEVOFLOXACIN 250 MG TAB PO SCH (09:00)
--- NOTE | 2017-08-09 12:50 | CDI ---
Last Revision, March 2017 Documentation Clarification Form 2nd Request Date: 08/09/17 7925 From: Khalida Sanabria RN, CCDS Admit Date: 08/04/2017 8:20:00 PM Patient Name: Danika Shahid Visit Number: [id number] ATTENTION: The Clinical Documentation Specialists (CDI) and [facility] Coding Staff appreciate your assistance in clarifying documentation. Please respond to the clarification below the line at the bottom and electronically sign. The CDI & [facility] Coding staff will review the response and follow-up if needed. Please note: Queries are made part of the Legal Health Record. If you have any questions, please contact the author of this message via ITS. Dr. Mehdi Becerril Pt is noted to have an increasing BUN, Creatinine, and Decreasing GFR. Please indicate Clinical Significance. History/Risk Factors: Diarrhea, nausea, dry heaving, AF, DM< FVT, GERD, Factor 5 Deficiency Clinical Indicators: 07/20/17 Baseline BUN/Cr/GFR: 20/05/59 Patients Current BUN: CR: 04/24.39/1.5 GFR: 60/40/36 Treatment: IVF: 0.9% 500 cc fluid bolus In order to capture the severity of condition, please clarify if the condition signifies: Acute renal failure, Please specify etiology (if known): Cortical Necrosis Medullary Necrosis Tubular Necrosis Acute kidney injury Acute on chronic renal failure CKD Stage 1 GFR >90 CKD Stage 2 GFR 60-89 CKD Stage 3 GFR 30-59 CKD Stage 4 GFR 15-29 CKD Stage 5 GFR <15 Chronic renal failure/Chronic Kidney disease (CKD) please stage if known CKD Stage 1 GFR >90 CKD Stage 2 GFR 60-89 CKD Stage 3 GFR 30-59 CKD Stage 4 GFR 15-29 CKD Stage 5 GFR <15 ESRD Other, please specify Unable to determine Please continue to document in your progress notes and discharge summary in order to capture severity of illness and risk of mortality. Include clinical findings that support your diagnosis. MTDD
== END 2017-08-07 19:00 | disposition home or self-care (01) | DRG 309 ==
LOC: EC 17:06 → 6SEL 20:20
PROVIDERS: ADMIT Family Medicine; ATTEND Family Medicine
DX: I48.2 Chronic atrial fibrillation (principal); D68.2 Hereditary deficiency of other clotting factors; N39.0 Urinary tract infection, site not specified; Z68.42 Body mass index [BMI] 45.0-49.9, adult; I42.8 Other cardiomyopathies; E11.42 Type 2 diabetes mellitus with diabetic polyneuropathy; E66.01 Morbid (severe) obesity due to excess calories; I08.1 Rheumatic disorders of both mitral and tricuspid valves; K43.2 Incisional hernia without obstruction or gangrene; E78.5 Hyperlipidemia, unspecified; F41.9 Anxiety disorder, unspecified; H91.90 Unspecified hearing loss, unspecified ear; I10 Essential (primary) hypertension; I25.10 Atherosclerotic heart disease of native coronary artery without angina pectoris; I45.10 Unspecified right bundle-branch block; J44.9 Chronic obstructive pulmonary disease, unspecified; K21.9 Gastro-esophageal reflux disease without esophagitis; K58.0 Irritable bowel syndrome with diarrhea; K76.0 Fatty (change of) liver, not elsewhere classified; M51.9 Unspecified thoracic, thoracolumbar and lumbosacral intervertebral disc disorder; N89.8 Other specified noninflammatory disorders of vagina; M19.90 Unspecified osteoarthritis, unspecified site; R60.0 Localized edema; E04.9 Nontoxic goiter, unspecified; Z79.01 Long term (current) use of anticoagulants; Z79.4 Long term (current) use of insulin; Z79.899 Other long term (current) drug therapy; Z90.710 Acquired absence of both cervix and uterus; Z90.722 Acquired absence of ovaries, bilateral; Z88.5 Allergy status to narcotic agent; Z88.6 Allergy status to analgesic agent; Z88.1 Allergy status to other antibiotic agents; Z91.040 Latex allergy status; Z90.49 Acquired absence of other specified parts of digestive tract; Z86.718 Personal history of other venous thrombosis and embolism; Z86.711 Personal history of pulmonary embolism; Z91.14 Patient's other noncompliance with medication regimen; Z83.3 Family history of diabetes mellitus; Z82.49 Family history of ischemic heart disease and other diseases of the circulatory system; Z82.3 Family history of stroke; Z80.8 Family history of malignant neoplasm of other organs or systems; Z80.0 Family history of malignant neoplasm of digestive organs
CPT/HCPCS: 36415; 74177; 76857; 80048; 80053; 81001; 82150; 82550; 82553; 83036; 83605; 83690; 83735; 84484; 85025; 85379; 85610; 85730; 87040; 87070; 87086; 87205; 93005; 93306; 96365; 96366; 99291

== ENCOUNTER 2017-09-06 23:07 | Inpatient (IN) | payer MEDICARE ==
[2017-09-07] MEDS ORDERED: ONDANSETRON 4 MG/2 ML VIAL IVP STA (00:25)
[2017-09-07 01:04] LABS: Appearance,Urine Cloudy (Clear); Bacteria,Urine Few /hpf; Bilirubin,Urine Negative (Negative); Blood,Urine Moderate (Negative); Color,Urine Yellow; Glucose,Urine (UA) Negative (Negative); Ketones,Urine Negative (Negative); Leukocyte Esterase,Urine Large (Negative); Mucus,Urine Rare /hpf; Nitrite,Urine Negative (Negative); PH, Urine 6.5 (5.0-8.0); Protein,Urine Trace (Negative); RBC,Urine 34 /hpf (0-5); Specific Gravity,Urine 1.008 (1.001-1.035); Squamous Epithelial Cell,Urine 26 /hpf (0-4); Urobilinogen,Urine <2.0 mg/dL (<2.0); WBC,Urine 80 /hpf (0-5)
[2017-09-07 01:20] LABS: Anisocytosis Slight; Basophils % (A) 1 %; Eosinophils # (A) 0.2 k/uL (0-0.7); Eosinophils % (A) 2 %; HCT 45.6 % (34.0-46.0); HGB 14.5 gm/dL (11.4-16.0); Lymphocytes # (A) 1.6 k/uL (1.0-4.8); Lymphocytes % (A) 19 %; MCH 29.5 pg (25.0-35.0); MCHC 31.7 g/dL (31.0-37.0); MCV 93.2 fL (80.0-100.0); Mean Platelet Volume 7.6; Monocytes # (A) 0.6 k/uL (0-1.0); Monocytes % (A) 7 %; Neutrophils # (A) 5.9 k/uL (1.3-7.7); Neutrophils % (A) 70 %; Platelet Count 155 k/uL (150-450); RDW 16.5 % (11.5-15.5); WBC 8.3 k/uL (3.8-10.6)
[2017-09-07] MEDS: DILTIAZEM 50 MG in SODIUM CHLORIDE 0.9% 40 ML IV STA ×2 (01:20→08:53)
[2017-09-07 01:21] LABS: Albumin 3.8 g/dL (3.5-5.0); Calcium 9.6 mg/dL (8.4-10.2); Potassium 4.3 mmol/L (3.5-5.1); Total Bilirubin 2.2 mg/dL (0.2-1.3); Total Protein 6.8 g/dL (6.3-8.2)
[2017-09-07 01:31] LABS: INR 2.5 (<1.2); Partial Thromboplastin Time 30.9 sec (22.0-30.0); Prothrombin Time 22.6 sec (9.0-12.0)
[2017-09-07 01:34] LABS: Creatine Kinase 76 U/L (30-135)
[2017-09-07 01:47] LABS: Creatine Kinase MB 1.7 ng/mL (0.0-2.4); Troponin I <0.012 ng/mL (0.000-0.034)
[2017-09-07] MEDS ORDERED: NITROGLYCERIN SL TABS 0.4 MG TAB SUBLINGUAL PRN (02:31)
[2017-09-07] MEDS ORDERED: BISACODYL 10 MG SUPP RECTAL PRN (02:34)
--- NOTE | 2017-09-07 02:36 | ED ---
Nausea/Vomiting/Diarrhea HPI - General Chief complaint: Nausea/Vomiting/Diarrhea Stated complaint: Nausea, new medication Time Seen by Provider: 09/07/17 00:12 Source: patient Mode of arrival: wheelchair Limitations: no limitations - History of Present Illness Initial comments: This patient is 67-year-old woman presenting tonight to be evaluated for nausea and dry heaves that been going on for the past couple of hours. She states that she is also having a little bit of shortness of breath and she has noted some bilateral leg edema that has been going on for the past few days, getting progressively worse. MD complaint: nausea, vomiting Onset/Timin -: hour(s) Description of Vomiting: other (Mostly dry heaves) Associated Abdominal Pain: No Consistency: constant Improves with: none Worsens with: none - Related Data Home Medications Medication Instructions Recorded Confirmed Rivaroxaban [Xarelto] 20 mg PO PC-SUPPER 09/20/14 08/04/17 Furosemide [Lasix] 40 mg PO DAILY 07/20/17 08/04/17 Glimepiride [Amaryl] 2 mg PO DAILY 07/20/17 08/04/17 Insulin NPL/Insulin Lispro 35 unit SQ BID 07/20/17 08/04/17 [humaLOG MIX 75-25 VIAL] Losartan Potassium [Cozaar] 25 mg PO DAILY 07/20/17 08/04/17 traMADol HCL [Ultram] 50 mg PO DAILY PRN 07/20/17 08/04/17 Loratadine [Claritin] 10 mg PO DAILY 08/04/17 08/04/17 Previous Rx's Medication Instructions Recorded Bisacodyl [Dulcolax] 10 mg RECTAL DAILY PRN supp 08/07/17 Gabapentin [Neurontin] 300 mg PO TID cap 08/07/17 Insulin Aspart [NovoLOG 0 unit SQ ACHS vial 08/07/17 (formulary)] Levofloxacin [Levaquin] 250 mg PO DAILY tab 08/07/17 Metoprolol Tartrate [Lopressor] 50 mg PO BID tab 08/07/17 Allergies Allergy/AdvReac Type Severity Reaction Status Date / Time acetaminophen Allergy nausea Verified 09/06/17 23:36 [From Darvocet-N] from acetominophen after a few doses cephalexin monohydrate Allergy Rash/Hives Verified 09/06/17 23:36 [From Keflex] latex Allergy Rash/Hives Verified 09/06/17 23:36 morphine Allergy Itching/Teo Verified 09/06/17 23:36 sea propoxyphene napsylate Allergy Rash/Hives Verified 09/06/17 23:36 [From Darvocet-N] codeine AdvReac Nausea Verified 09/06/17 23:36 Review of Systems ROS Statement: Those systems with pertinent positive or pertinent negative responses have been documented in the HPI. ROS Other: All systems not noted in ROS Statement are negative. Constitutional: Denies: fever, chills, weakness Respiratory: Reports: dyspnea. Denies: cough, wheezes Cardiovascular: Reports: palpitations, orthopnea, edema. Denies: chest pain, dyspnea on exertion, syncope Gastrointestinal: Reports: nausea, vomiting. Denies: abdominal pain, diarrhea, melena, hematochezia Genitourinary: Denies: dysuria, hematuria Musculoskeletal: Denies: back pain Skin: Denies: rash Neurological: Denies: headache, weakness, numbness Past Medical History Past Medical History: Atrial Fibrillation, Diabetes Mellitus, Deep Vein Thrombosis (DVT), GERD/Reflux, Neurologic Disorder, Osteoarthritis (OA), Pulmonary Embolus (PE) Additional Past Medical History / Comment(s): HX FACTOR 5 , DIZZINESS LATELY-HX VERTIGO SINCE 1991, HX MOTION SICKNESS ALL HER LIFE, HX IBS,TARSAL TUNNEL PROBLEMS NIKOLAY. ANKLES,PINCHED NERVE LOWER BACK, DDD, HAS POLYP LT CHEEK-BUT DR. IBRAHIM DOESN'T WANT PT TO HAVE REMOVED DVT-LT LEG & PE 2007, CHRONIC SINUS, LIVER ENZMES ELEVATED SPRING 2014,THYROID IS ENLARGED, WEARS GLASSES DISTANCE ONLY, FLUID IN LEFT EAR ALL THE TIME History of Any Multi-Drug Resistant Organisms: None Reported Past Surgical History: Bowel Resection, Cholecystectomy, Hysterectomy, Tonsillectomy, Tubal Ligation Additional Past Surgical History / Comment(s): CARDIOVERSION 2014 and 2017 @ [facility], LUMP REMOVED RT ARMPIT AREA, COLOSTOMY 1991 AFTER HYST R/T RUPTURED BOWEL REVISION OCTOBER 1991 Past Anesthesia/Blood Transfusion Reactions: Previous Problems w/ Anesthesia, Motion Sickness, Postoperative Nausea & Vomiting (PONV) Additional Past Anesthesia/Blood Transfusion Reaction / Comment(s): HX FACTOR 5 LIDEN,PONV- MOTION SICKNESS ALL HER LIFE- VERTIGO Past Psychological History: Anxiety Smoking Status: Never smoker Past Alcohol Use History: None Reported Past Drug Use History: None Reported - Past Family History Mother Family Medical History: CVA/TIA, Diabetes Mellitus, Hypertension Father History Unknown: Yes Additional Family Medical History / Comment(s): FATHER @ AGE 83- PT WAS 3 YRS OLD @ THE TIME- HX UNKNOWN Sister(s) Family Medical History: Cancer Additional Family Medical History / Comment(s): 5 SISTERS WITH THYROID- 3 SISTERS HAD CA- PANCREATIC,CERVICAL & MELANOMA General Exam Limitations: no limitations General appearance: alert, in no apparent distress, obese Head exam: Present: atraumatic, normocephalic Eye exam: Present: normal appearance. Absent: scleral icterus, conjunctival injection ENT exam: Present: normal oropharynx Neck exam: Present: normal inspection Respiratory exam: Present: normal lung sounds bilaterally. Absent: respiratory distress, wheezes, rales, rhonchi, stridor, chest wall tenderness, accessory muscle use Cardiovascular Exam: Present: tachycardia, irregular rhythm, normal heart sounds. Absent: systolic murmur, diastolic murmur, rubs, gallop GI/Abdominal exam: Present: soft. Absent: distended, tenderness, guarding, rebound, mass Extremities exam: Present: normal inspection, normal capillary refill, pedal edema (There is edema to the mid tibia bilaterally). Absent: calf tenderness Back exam: Present: normal inspection. Absent: CVA tenderness (R), CVA tenderness (L) Neurological exam: Present: alert Skin exam: Present: warm, dry, intact, normal color. Absent: rash Course Vital Signs 09/06/17 09/07/17 09/07/17 23:36 01:07 02:51 Temperature 98.0 F Pulse Rate 147 H 110 H 94 Respiratory 20 18 18 Rate Blood Pressure 120/66 126/73 105/66 O2 Sat by Pulse 99 95 98 Oximetry Medical Decision Making - Medical Decision Making Patient is 67-year-old woman who is found to have atrial fibrillation with a rate approximately 130s to 150s. Patient will be admitted for further rate control. In addition there is some edema which she states is new and diuretics will be started for this. Finally there is urinary tract infection, patient's oral Levaquin will be continued pending culture results. Igor discussed with Dr. Mullally who will admit with cardiology consultation. - Lab Data Result diagrams: 09/07/17 00:55 09/07/17 00:55 Lab Results 09/07/17 09/07/17 09/07/17 Range/Units 00:46 00:55 00:55 WBC 8.3 (3.8-10.6) k/uL RBC 4.90 (3.80-5.40) m/uL Hgb 14.5 (11.4-16.0) gm/dL Hct 45.6 (34.0-46.0) % MCV 93.2 (80.0-100.0) fL MCH 29.5 (25.0-35.0) pg MCHC 31.7 (31.0-37.0) g/dL RDW 16.5 H (11.5-15.5) % Plt Count 155 (150-450) k/uL Neutrophils % 70 % Lymphocytes % 19 % Monocytes % 7 % Eosinophils % 2 % Basophils % 1 % Neutrophils # 5.9 (1.3-7.7) k/uL Lymphocytes # 1.6 (1.0-4.8) k/uL Monocytes # 0.6 (0-1.0) k/uL Eosinophils # 0.2 (0-0.7) k/uL Basophils # 0.0 (0-0.2) k/uL Anisocytosis Slight PT (9.0-12.0) sec INR (<1.2) APTT (22.0-30.0) sec Sodium (137-145) mmol/L Potassium (3.5-5.1) mmol/L Chloride (98-107) mmol/L Carbon Dioxide (22-30) mmol/L Anion Gap mmol/L BUN (7-17) mg/dL Creatinine (0.52-1.04) mg/dL Est GFR (CKD-EPI)AfAm (>60 ml/min/1.73 sqM) Est GFR (CKD-EPI)NonAf (>60 ml/min/1.73 sqM) Glucose (74-99) mg/dL Calcium (8.4-10.2) mg/dL Magnesium (1.6-2.3) mg/dL Total Bilirubin (0.2-1.3) mg/dL AST (14-36) U/L ALT (9-52) U/L Alkaline Phosphatase (38-126) U/L Total Creatine Kinase 76 (30-135) U/L CK-MB (CK-2) 1.7 (0.0-2.4) ng/mL CK-MB (CK-2) Rel Index 2.2 Troponin I <0.012 (0.000-0.034) ng/mL Total Protein (6.3-8.2) g/dL Albumin (3.5-5.0) g/dL Urine Color Yellow Urine Appearance Cloudy H (Clear) Urine pH 6.5 (5.0-8.0) Ur Specific Bronson 1.008 (1.001-1.035) Urine Protein Trace H (Negative) Urine Glucose (UA) Negative (Negative) Urine Ketones Negative (Negative) Urine Blood Moderate H (Negative) Urine Nitrite Negative (Negative) Urine Bilirubin Negative (Negative) Urine Urobilinogen <2.0 (<2.0) mg/dL Ur Leukocyte Esterase Large H (Negative) Urine RBC 34 H (0-5) /hpf Urine WBC 80 H (0-5) /hpf Ur Squamous Epith Cells 26 H (0-4) /hpf Urine Bacteria Few H (None) /hpf Urine Mucus Rare H (None) /hpf 09/07/17 09/07/17 Range/Units 00:55 00:55 WBC (3.8-10.6) k/uL RBC (3.80-5.40) m/uL Hgb (11.4-16.0) gm/dL Hct (34.0-46.0) % MCV (80.0-100.0) fL MCH (25.0-35.0) pg MCHC (31.0-37.0) g/dL RDW (11.5-15.5) % Plt Count (150-450) k/uL Neutrophils % % Lymphocytes % % Monocytes % % Eosinophils % % Basophils % % Neutrophils # (1.3-7.7) k/uL Lymphocytes # (1.0-4.8) k/uL Monocytes # (0-1.0) k/uL Eosinophils # (0-0.7) k/uL Basophils # (0-0.2) k/uL Anisocytosis PT 22.6 H (9.0-12.0) sec INR 2.5 H (<1.2) APTT 30.9 H (22.0-30.0) sec Sodium 141 (137-145) mmol/L Potassium 4.3 (3.5-5.1) mmol/L Chloride 99 (98-107) mmol/L Carbon Dioxide 28 (22-30) mmol/L Anion Gap 14 mmol/L BUN 24 H (7-17) mg/dL Creatinine 1.10 H (0.52-1.04) mg/dL Est GFR (CKD-EPI)AfAm 61 (>60 ml/min/1.73 sqM) Est GFR (CKD-EPI)NonAf 53 (>60 ml/min/1.73 sqM) Glucose 165 H (74-99) mg/dL Calcium 9.6 (8.4-10.2) mg/dL Magnesium 2.0 (1.6-2.3) mg/dL Total Bilirubin 2.2 H (0.2-1.3) mg/dL AST 63 H (14-36) U/L ALT 33 (9-52) U/L Alkaline Phosphatase 98 (38-126) U/L Total Creatine Kinase (30-135) U/L CK-MB (CK-2) (0.0-2.4) ng/mL CK-MB (CK-2) Rel Index Troponin I (0.000-0.034) ng/mL Total Protein 6.8 (6.3-8.2) g/dL Albumin 3.8 (3.5-5.0) g/dL Urine Color Urine Appearance (Clear) Urine pH (5.0-8.0) Ur Specific Bronson (1.001-1.035) Urine Protein (Negative) Urine Glucose (UA) (Negative) Urine Ketones (Negative) Urine Blood (Negative) Urine Nitrite (Negative) Urine Bilirubin (Negative) Urine Urobilinogen (<2.0) mg/dL Ur Leukocyte Esterase (Negative) Urine RBC (0-5) /hpf Urine WBC (0-5) /hpf Ur Squamous Epith Cells (0-4) /hpf Urine Bacteria (None) /hpf Urine Mucus (None) /hpf - EKG Data -: EKG Interpreted by Mn EKG shows normal: axis (Left axis deviation), QRS complexes (Right bundle- branch block.), ST-T waves (T inversions laterally) Rate: tachycardia When compared to previous EKG there are: other (Atrial fibrillation with a rate approximately 132 bpm.) Disposition Clinical Impression: Atrial fibrillation with RVR, Leg edema, Urinary tract infection Disposition: ADMITTED IP TO THIS HOSP Condition: Fair
[2017-09-07 03:39] VITALS: BMI 49.0
[2017-09-07 03:42] LABS: Glucose,Whole Blood 134 mg/dL (75-99)
[2017-09-07 05:57] LABS: Glucose,Whole Blood 147 mg/dL (75-99)
[2017-09-07 07:29] LABS: Creatine Kinase MB 1.9 ng/mL (0.0-2.4); Troponin I 0.012 ng/mL (0.000-0.034)
[2017-09-07] MEDS: INSULN ASP PRT/INSULIN ASPART 100 UNIT/ML 10 ML VIAL SQ SCH ×2 (08:53→22:23)
[2017-09-07] MEDS: LEVOFLOXACIN 250 MG TAB PO SCH (08:53)
[2017-09-07] MEDS: LORATADINE 10 MG TAB PO SCH (08:53)
[2017-09-07] MEDS: GLIMEPIRIDE 2 MG TAB PO SCH (08:54)
[2017-09-07] MEDS: FUROSEMIDE 10 MG/ML 4 ML VIAL IV SCH ×2 (08:55→20:37)
[2017-09-07] MEDS ORDERED: LOSARTAN 25 MG TAB PO SCH (09:00)
[2017-09-07] MEDS ORDERED: METOPROLOL TARTRATE 50 MG TAB PO SCH (09:00)
--- NOTE | 2017-09-07 11:11 | P.CRDCN ---
History of Present Illness Consult date: 09/07/17 Requesting physician: Mehdi Becerril Consult reason: atrial fibrillation Chief complaint: Nausea and dry heaves History of present illness: This is a pleasant 67-year-old female with known history of hypertension, diabetes, obesity, factor V Leiden carrier, cardiomyopathy, prior heart catheterization in 2014 which revealed a 30-40% mid LAD lesion, no significant disease in the nondominant circumflex or RCA. Patient also has history of COPD, hyperlipidemia, paroxysmal atrial fibrillation, on Xarelto for anticoagulation, she also has history of PE. Patient presents to the hospital on this occasion with symptoms of persistent nausea with associated dry heaves. She states that she's been nauseated for approximately 3 weeks, shortly after she was initiated on gabapentin. She also states that she's been having an increase in her peripheral edema, she spoke with her pharmacist who indicated that her symptoms of nausea and leg swelling could be from the gabapentin, so she stopped taking it. Patient was also started recently on a sleeping medication which she states she has also stopped since it was initiated. EKG on admission here showed atrial fibrillation with a rapid ventricular response, right bundle branch block pattern and T-wave abnormality noted. For this reason cardiology consultation was requested. Patient was started on IV Cardizem drip on admission here, she is anticoagulated with xarelto. Blood pressure on arrival here 120/60, heart rate in the 140-150 range, 99% on room air, temperature is 98.0. CBC is normal, sodium 141, potassium 4.3, BUN 24, creatinine 1.1. Mag level 2.0, AST 63, ALT 33, troponins negative 2. Positive UTI. No chest or abdominal xray were performed in the emergency room. Echocardiogram with Doppler study was performed in July of this year which revealed an ejection fraction of 20-25%. Patient denies any shortness of breath. We will increase her dose of beta ashley and discontinue the Cardizem drip. Past Medical History Past Medical History: Atrial Fibrillation, Diabetes Mellitus, Deep Vein Thrombosis (DVT), GERD/Reflux, Neurologic Disorder, Osteoarthritis (OA), Pulmonary Embolus (PE) Additional Past Medical History / Comment(s): HX FACTOR 5 , DIZZINESS LATELY-HX VERTIGO SINCE 1991, HX MOTION SICKNESS ALL HER LIFE, HX IBS,TARSAL TUNNEL PROBLEMS NIKOLAY. ANKLES,PINCHED NERVE LOWER BACK, DDD, HAS POLYP LT CHEEK-BUT DR. IBRAHIM DOESN'T WANT PT TO HAVE REMOVED DVT-LT LEG & PE 2007, CHRONIC SINUS, LIVER ENZMES ELEVATED SPRING 2014,THYROID IS ENLARGED, WEARS GLASSES DISTANCE ONLY, FLUID IN LEFT EAR ALL THE TIME History of Any Multi-Drug Resistant Organisms: None Reported Past Surgical History: Bowel Resection, Cholecystectomy, Hysterectomy, Tonsillectomy, Tubal Ligation Additional Past Surgical History / Comment(s): CARDIOVERSION 2014 and 2016 @ [facility], LUMP REMOVED RT ARMPIT AREA, COLOSTOMY 1991 AFTER HYST R/T RUPTURED BOWEL REVISION OCTOBER 1991 Past Anesthesia/Blood Transfusion Reactions: Previous Problems w/ Anesthesia, Motion Sickness, Postoperative Nausea & Vomiting (PONV) Additional Past Anesthesia/Blood Transfusion Reaction / Comment(s): HX FACTOR 5 LIDEN,PONV- MOTION SICKNESS ALL HER LIFE- VERTIGO Past Psychological History: Anxiety Smoking Status: Never smoker Past Alcohol Use History: None Reported Past Drug Use History: None Reported - Past Family History Mother Family Medical History: CVA/TIA, Diabetes Mellitus, Hypertension Father History Unknown: Yes Additional Family Medical History / Comment(s): FATHER @ AGE 83- PT WAS 3 YRS OLD @ THE TIME- HX UNKNOWN Sister(s) Family Medical History: Cancer Additional Family Medical History / Comment(s): 5 SISTERS WITH THYROID- 3 SISTERS HAD CA- PANCREATIC,CERVICAL & MELANOMA Medications and Allergies Home Medications Medication Instructions Recorded Confirmed Type Rivaroxaban [Xarelto] 20 mg PO PC-SUPPER 09/20/14 09/07/17 History Insulin NPL/Insulin Lispro 35 unit SQ BID 07/20/17 09/07/17 History [humaLOG MIX 75-25 VIAL] Losartan Potassium [Cozaar] 25 mg PO DAILY 07/20/17 09/07/17 History traMADol HCL [Ultram] 50 mg PO DAILY PRN 07/20/17 09/07/17 History Metoprolol Tartrate [Lopressor] 50 mg PO BID tab 08/07/17 09/07/17 Rx Furosemide [Lasix] 40 mg PO BID 09/07/17 09/07/17 History Allergies Allergy/AdvReac Type Severity Reaction Status Date / Time acetaminophen Allergy nausea Verified 09/07/17 08:46 [From Darvocet-N] from acetominophen after a few doses cephalexin monohydrate Allergy Rash/Hives Verified 09/07/17 08:46 [From Keflex] latex Allergy Rash/Hives Verified 09/07/17 08:46 morphine Allergy Itching/Teo Verified 09/07/17 08:46 sea propoxyphene napsylate Allergy Rash/Hives Verified 09/07/17 08:46 [From Darvocet-N] codeine AdvReac Nausea Verified 09/07/17 08:46 Physical Exam Vitals: Vital Signs Temp Pulse Pulse Resp BP BP Pulse Ox 09/07/17 08:00 97.9 F 106 H 18 125/69 98 09/07/17 03:50 96.8 F L 104 H 18 124/79 97 09/07/17 02:51 94 18 105/66 98 09/07/17 01:07 110 H 18 126/73 95 09/06/17 23:36 98.0 F 147 H 20 120/66 99 Intake and Output 09/06/17 09/07/17 09/07/17 22:59 06:59 14:59 Intake Total 155.75 Output Total 200 Balance -200 155.75 Intake: Intake, IV Titration 37.75 Amount Diltiazem 50 mg In Sodium 37.75 Chloride 0.9% 40 ml @ 5 MG/HR 5 mls/hr IV .Q10H STA Rx#:[id number] Oral 118 Output: Urine 200 Other: Weight 137.892 kg PHYSICAL EXAMINATION: HEENT: Head is atraumatic, normocephalic. Pupils equal, round. Neck is supple. There is no elevated jugular venous pressure. HEART EXAMINATION: Heart S1 and S2 irregularly irregular, distant CHEST EXAMINATION: Lungs are clear to auscultation and precussion. Diminished air entry to the bases. No chest wall tenderness is noted on palpation or with deep breathing. ABDOMEN: Soft, obese, generalized tenderness noted . Bowel sounds are heard. No organomegaly noted. EXTREMITIES:[ 1+ peripheral pulses with evidence bilateral peripheral edema and erythema. NEUROLOGIC patient is awake, alert and oriented -3. . Results 09/07/17 00:55 09/07/17 00:55 Cardiac Enzymes 09/07/17 09/07/17 09/07/17 Range/Units 00:55 00:55 06:09 AST 63 H (14-36) U/L CK-MB (CK-2) 1.7 1.9 (0.0-2.4) ng/mL Troponin I <0.012 0.012 (0.000-0.034) ng/mL Coagulation 09/07/17 Range/Units 00:55 PT 22.6 H (9.0-12.0) sec APTT 30.9 H (22.0-30.0) sec CBC 09/07/17 Range/Units 00:55 WBC 8.3 (3.8-10.6) k/uL RBC 4.90 (3.80-5.40) m/uL Hgb 14.5 (11.4-16.0) gm/dL Hct 45.6 (34.0-46.0) % Plt Count 155 (150-450) k/uL Comprehensive Metabolic Panel 09/07/17 Range/Units 00:55 Sodium 141 (137-145) mmol/L Potassium 4.3 (3.5-5.1) mmol/L Chloride 99 (98-107) mmol/L Carbon Dioxide 28 (22-30) mmol/L BUN 24 H (7-17) mg/dL Creatinine 1.10 H (0.52-1.04) mg/dL Glucose 165 H (74-99) mg/dL Calcium 9.6 (8.4-10.2) mg/dL AST 63 H (14-36) U/L ALT 33 (9-52) U/L Alkaline Phosphatase 98 (38-126) U/L Total Protein 6.8 (6.3-8.2) g/dL Albumin 3.8 (3.5-5.0) g/dL Current Medications Generic Name Dose Route Start Last Admin Trade Name Freq PRN Reason Stop Dose Admin Aspirin 81 mg 09/08/17 09:00 Aspirin PO DAILY [facility] Bisacodyl 10 mg 09/07/17 02:34 Dulcolax RECTAL DAILY PRN Constipation Furosemide 40 mg 09/07/17 09:00 09/07/17 08:55 Lasix IV 40 mg BID [facility] Administration Glimepiride 2 mg 09/07/17 09:00 09/07/17 08:54 Amaryl PO 2 mg DAILY [facility] Administration Insulin Aspart 35 unit 09/07/17 09:00 09/07/17 08:53 Novolog Mix 70-30 Vial SQ 35 unit BID [facility] Administration Levofloxacin 250 mg 09/07/17 09:00 09/07/17 08:53 Levaquin PO 250 mg DAILY [facility] Administration Loratadine 10 mg 09/07/17 09:00 09/07/17 08:53 Claritin PO 10 mg DAILY [facility] Administration Losartan Potassium 25 mg 09/07/17 09:00 09/07/17 08:53 Cozaar PO 25 mg DAILY [facility] Administration Metoprolol Tartrate 50 mg 09/07/17 09:00 09/07/17 08:53 Lopressor PO 50 mg BID [facility] Administration Nitroglycerin 0.4 mg 09/07/17 02:31 Nitrostat SUBLINGUAL Q5M PRN Chest Pain Rivaroxaban 20 mg 09/07/17 18:30 Xarelto PO PC-SUPPER [facility] Sodium Chloride 10 ml 09/07/17 09:00 09/07/17 08:54 Saline Flush IV 10 ml BID [facility] Administration Tramadol HCl 50 mg 09/07/17 02:34 Ultram PO DAILY PRN Pain Intake and Output 09/06/17 09/07/17 09/07/17 22:59 06:59 14:59 Intake Total 155.75 Output Total 200 Balance -200 155.75 Intake: Intake, IV Titration 37.75 Amount Diltiazem 50 mg In Sodium 37.75 Chloride 0.9% 40 ml @ 5 MG/HR 5 mls/hr IV .Q10H STA Rx#:[id number] Oral 118 Output: Urine 200 Other: Weight 137.892 kg 09/07/17 00:55 09/07/17 00:55 EKG Interpretations (text) EKG shows atrial fibrillation with a rapid ventricular response. Assessment and Plan Plan: Assessment and plan #1 atrial fibrillation with rapid ventricular response, chronic persistent. We will discontinue the IV Cardizem and increase the dose of oral ashley. #2 symptoms of nausea and dry heaves, could be secondary to gabapentin which she started 3 weeks ago #3 bilateral lower extremity edema, we will obtain a BNP level, and chest x- ray. Patient has been initiated on IV Lasix. #4 diabetes #5 hypertension #6 obesity #7 factor V Leiden carrier #8 history of pulmonary embolism #9 COPD #10 nonischemic cardiomyopathy #11 noncompliance with medications #12 UTI Plan We will obtain a chest x-ray and BNP level. IV Cardizem will be discontinued and dose of beta ashley increased. Continue losartan, and xarelto, add Aldactone to her medication regime. Patient was also started on a statin this last admission because of her history of diabetes, we will reinitiate a statin. Patient just had an echo performed last month which revealed an ejection fraction of 20-25%. Further recommendations to follow. DNP note has been reviewed, I agree with a documented findings and plan of care. Patient was seen and examined.
[2017-09-07 11:44] LABS: Glucose,Whole Blood 169 mg/dL (75-99)
--- NOTE | 2017-09-07 12:04 | XR ---
EXAMINATION TYPE: XR chest 2V DATE OF EXAM: 09/07/2017 COMPARISON: 10/20/2014 HISTORY: Lower extremity edema. Chest pain. TECHNIQUE: Frontal and lateral views of the chest are obtained. FINDINGS: There is no focal air space opacity, pleural effusion, or pneumothorax seen. Platelike lef t upper lung atelectasis or pleural parenchymal scarring has progressed from the prior exam of 2014. The cardiac silhouette size is mildly enlarged. The osseous structures are intact. Cholecystectomy clips are noted. Moderate multilevel degenerative changes of the thoracic spine are seen. Mild glenoh umeral and acromioclavicular arthropathy are also noted. IMPRESSION: Progressed left upper lung pleural parenchymal scarring or subsegmental atelectasis in c omparison to the prior of 2014. No additional acute cardiac pulmonary process.
[2017-09-07 12:17] LABS: Hemoglobin A1C 8.6 % (4.0-6.0)
[2017-09-07] MEDS: SPIRONOLACTONE 25 MG TAB PO SCH (12:37)
[2017-09-07] MEDS: ATORVASTATIN 40 MG TAB PO SCH (12:37)
[2017-09-07 12:57] LABS: Creatine Kinase 79 U/L (30-135)
[2017-09-07 13:09] LABS: Troponin I <0.012 ng/mL (0.000-0.034)
[2017-09-07] MEDS: METOPROLOL TARTRATE 50 MG TAB PO SCH ×2 (16:24→20:38)
[2017-09-07 17:04] LABS: Glucose,Whole Blood 177 mg/dL (75-99)
[2017-09-07] MEDS: RIVAROXABAN 20 MG TAB PO SCH (18:42)
[2017-09-07] MEDS: SACUBITRIL/VALSARTAN 24 MG-26 MG TABLET PO SCH (20:38)
[2017-09-07 21:09] LABS: Glucose,Whole Blood 204 mg/dL (75-99)
--- NOTE | 2017-09-07 22:48 | HP ---
HISTORY AND PHYSICAL CHIEF COMPLAINT: A 67-year-old white female with hypertension, diabetes, factor V Leiden deficiency, obesity, cardiomyopathy, heart catheterization, 30%-40% LAD lesion with history of heart failure, severe peripheral neuropathy, paroxysmal atrial fibrillation. She is on Xarelto for A. fib. and PE. She had some nausea and dry heaves for the past 3 weeks. When she showed up, she was initially on gabapentin. She has been having increase in peripheral edema, so the nausea and leg swelling could be from the gabapentin. She stopped taking it, but despite stopping the medicine a week ago. She still has nausea and abdominal pain. EKG showed A. fib. with rapid ventricular response. She has been kind of noncompliant with Cardizem and beta blockers. She is on IV Cardizem drip due to A. fib. with rapid ventricular response. Echo showed ejection fraction 20%-25%. PAST MEDICAL HISTORY: Atrial fibrillation, diabetes mellitus, DVT GERD, factor V Leiden deficiency, osteoarthritis, pulmonary embolism, morbid obesity, vertigo, tarsal tunnel, DVT, PE, chronic sinusitis, liver enzyme elevation, thyromegaly. SURGICAL HISTORY: Bowel resection, cholecystectomy, hysterectomy, tonsillectomy, tubal ligation, cardioversion, colostomy, ruptured bowel. FAMILY HISTORY: Mother with CVA, TIA, diabetes mellitus, hypertension. Father unknown. Sister had thyroid cancer. Pancreatic, cervical, melanoma cancer. HOME MEDICINES: 1. Xarelto. 2. Humalog 75/25. 3. Cozaar. 4. Tramadol. 5. Lopressor. 6. Lasix. ALLERGIES: CODEINE, DARVOCET, KEFLEX, MORPHINE. VITAL SIGNS: Temp 97.9, pulse 106, respiratory rate 16-18, blood pressure 105-120s, pulse rate is in the 110-140s, O2 97%-98% and her current BMI is over 40. CARDIOVASCULAR: S1, S2. Irregular irregular rhythm. Tachycardic. Lungs show rales at the bases. ENDOCRINE: BMI is over 40. Extremities show 2 to 3+ pedal edema. Stasis changes in the lower legs. PSYCH: Fair mood and affect. NEUROLOGIC: Alert and oriented x3. White count is 8.3, hemoglobin is 14.5, platelets 155. Sodium 141, potassium 4.3, BUN 24, creatinine 1.10. ASSESSMENT: 1. Atrial fibrillation with rapid ventricular response. 2. Dry heaves secondary to gabapentin, which she stopped over a week ago. I doubt this. It is possible it is gastroesophageal reflux disease. She may need an esophagogastroduodenoscopy. 3. Possible congestive heart failure. IV Lasix will be given. 4. Diabetes mellitus. 5. Hypertension. 6. Obesity. 7. Factor V Leiden deficiency. 8. Chronic obstructive pulmonary disease. 9. Nonischemic cardiomyopathy. 10.Noncompliance with medications for atrial fibrillation with recurrent tachycardia, admitted to the hospital. 11.History of pulmonary embolism. 12.Urinary tract infection. Her blood pressure medication will be adjusted. Please see cardiac consultation. Possible surgical consultation for EGD for chronic GERD. MMODL / IJN: [id number] /
[2017-09-08] MEDS: traMADol 50 MG TAB PO PRN ×2 (01:08→14:55)
[2017-09-08 06:56] LABS: Glucose,Whole Blood 109 mg/dL (75-99)
[2017-09-08 07:02] LABS: Albumin 3.6 g/dL (3.5-5.0); Calcium 9.1 mg/dL (8.4-10.2); Total Protein 6.5 g/dL (6.3-8.2)
[2017-09-08 07:15] LABS: Anisocytosis Slight; Basophils # (A) 0.1 k/uL (0-0.2); Basophils % (A) 1 %; Eosinophils # (A) 0.1 k/uL (0-0.7); Eosinophils % (A) 1 %; HCT 47.2 % (34.0-46.0); HGB 14.8 gm/dL (11.4-16.0); Hypochromasia Slight; Lymphocytes # (A) 1.5 k/uL (1.0-4.8); Lymphocytes % (A) 22 %; MCH 29.7 pg (25.0-35.0); MCHC 31.3 g/dL (31.0-37.0); MCV 94.9 fL (80.0-100.0); Mean Platelet Volume 7.4; Monocytes # (A) 0.7 k/uL (0-1.0); Monocytes % (A) 10 %; Neutrophils # (A) 4.4 k/uL (1.3-7.7); Neutrophils % (A) 63 %; Platelet Count 165 k/uL (150-450); RBC 4.98 m/uL (3.80-5.40); RDW 16.8 % (11.5-15.5); WBC 6.9 k/uL (3.8-10.6)
[2017-09-08] MEDS: INSULN ASP PRT/INSULIN ASPART 100 UNIT/ML 10 ML VIAL SQ SCH ×2 (08:56→21:18)
[2017-09-08] MEDS: GLIMEPIRIDE 2 MG TAB PO SCH (08:57)
[2017-09-08] MEDS: ATORVASTATIN 40 MG TAB PO SCH (08:57)
[2017-09-08] MEDS: LEVOFLOXACIN 250 MG TAB PO SCH (08:57)
[2017-09-08] MEDS: ASPIRIN 81 MG PO SCH ×2 (08:57→09:08)
[2017-09-08] MEDS: LORATADINE 10 MG TAB PO SCH (08:57)
[2017-09-08] MEDS: SACUBITRIL/VALSARTAN 24 MG-26 MG TABLET PO SCH ×2 (08:57→21:04)
[2017-09-08] MEDS: FUROSEMIDE 10 MG/ML 4 ML VIAL IV SCH ×2 (08:57→21:06)
[2017-09-08] MEDS: METOPROLOL TARTRATE 50 MG TAB PO SCH ×3 (08:57→21:05)
[2017-09-08] MEDS: SPIRONOLACTONE 25 MG TAB PO SCH (08:58)
[2017-09-08] MEDS ORDERED: ASPIRIN 325 MG TAB PO SCH (09:00)
[2017-09-08 09:12] LABS: Poikilocytosis (M) Present
[2017-09-08 11:49] LABS: Glucose,Whole Blood 113 mg/dL (75-99)
[2017-09-08 13:24] LABS: Glucose,Whole Blood 121 mg/dL (75-99)
--- NOTE | 2017-09-08 13:46 | P.GSCN ---
History of Present Illness Consult date: 09/08/17 Reason for Consult: Nausea vomiting 3 weeks prior History of present illness: 67-year-old female being seen at the request of the attending for a surgical eval for episode prior to admission of nausea with dry heaves. Patient currently is sitting up on the edge of the bed states the symptoms have resolved currently is deny abdominal pain or any nausea or vomiting. Patient is being followed by cardiology. Patient has atrial fibrillation was experiencing episodes of rapid ventricular response cardiology patient is well known to Dr. shelton was seen in consultation in July 2017. At that time patient had a CAT scan performed which showed evidence of [address] shelton did discuss with the patient at the bedside this morning no surgical intervention at this time would address the incisional hernias an outpatient setting Patient is morbidly obese BMI is 48. Does have a history of Fausto procedure with reversal of colostomy approximately 20 years prior. Review of Systems Essentially unremarkable except as mentioned in the present illness Past Medical History Past Medical History: Atrial Fibrillation, Diabetes Mellitus, Deep Vein Thrombosis (DVT), GERD/Reflux, Neurologic Disorder, Osteoarthritis (OA), Pulmonary Embolus (PE) Additional Past Medical History / Comment(s): HX FACTOR 5 , DIZZINESS LATELY-HX VERTIGO SINCE 1991, HX MOTION SICKNESS ALL HER LIFE, HX IBS,TARSAL TUNNEL PROBLEMS NIKOLAY. ANKLES,PINCHED NERVE LOWER BACK, DDD, HAS POLYP LT CHEEK-BUT DR. IBRAHIM DOESN'T WANT PT TO HAVE REMOVED DVT-LT LEG & PE 2007, CHRONIC SINUS, LIVER ENZMES ELEVATED SPRING 2014,THYROID IS ENLARGED, WEARS GLASSES DISTANCE ONLY, FLUID IN LEFT EAR ALL THE TIME History of Any Multi-Drug Resistant Organisms: None Reported Past Surgical History: Bowel Resection, Cholecystectomy, Hysterectomy, Tonsillectomy, Tubal Ligation Additional Past Surgical History / Comment(s): CARDIOVERSION 2014 and 2016 @ [facility] LUMP REMOVED RT ARMPIT AREA, COLOSTOMY 1991 AFTER HYST R/T RUPTURED BOWEL REVISION OCTOBER 1991 Past Anesthesia/Blood Transfusion Reactions: Previous Problems w/ Anesthesia, Motion Sickness, Postoperative Nausea & Vomiting (PONV) Additional Past Anesthesia/Blood Transfusion Reaction / Comm: HX FACTOR 5 LIDEN, PONV- MOTION SICKNESS ALL HER LIFE- VERTIGO Past Psychological History: Anxiety Smoking Status: Never smoker Past Alcohol Use History: None Reported Past Drug Use History: None Reported - Past Family History Mother Family Medical History: CVA/TIA, Diabetes Mellitus, Hypertension Father History Unknown: Yes Additional Family Medical History / Comment(s): FATHER @ AGE 83- PT WAS 3 YRS OLD @ THE TIME- HX UNKNOWN Sister(s) Family Medical History: Cancer Additional Family Medical History / Comment(s): 5 SISTERS WITH THYROID- 3 SISTERS HAD CA- PANCREATIC,CERVICAL & MELANOMA Medications and Allergies Home Medications Medication Instructions Recorded Confirmed Type Rivaroxaban [Xarelto] 20 mg PO PC-SUPPER 09/20/14 09/07/17 History Insulin NPL/Insulin Lispro 35 unit SQ BID 07/20/17 09/07/17 History [humaLOG MIX 75-25 VIAL] Losartan Potassium [Cozaar] 25 mg PO DAILY 07/20/17 09/07/17 History traMADol HCL [Ultram] 50 mg PO DAILY PRN 07/20/17 09/07/17 History Metoprolol Tartrate [Lopressor] 50 mg PO BID tab 08/07/17 09/07/17 Rx Furosemide [Lasix] 40 mg PO BID 09/07/17 09/07/17 History Allergies Allergy/AdvReac Type Severity Reaction Status Date / Time acetaminophen Allergy nausea Verified 09/07/17 08:46 [From Darvocet-N] from acetominophen after a few doses cephalexin monohydrate Allergy Rash/Hives Verified 09/07/17 08:46 [From Keflex] latex Allergy Rash/Hives Verified 09/07/17 08:46 morphine Allergy Itching/Teo Verified 09/07/17 08:46 sea propoxyphene napsylate Allergy Rash/Hives Verified 09/07/17 08:46 [From Darvocet-N] codeine AdvReac Nausea Verified 09/07/17 08:46 Surgical - Exam Vital Signs Temp Pulse Resp BP Pulse Ox 98.0 F 147 H 20 120/66 99 09/06/17 23:36 09/06/17 23:36 09/06/17 23:36 09/06/17 23:36 09/06/17 23:36 GENERAL APPEARANCE: 67-year-old patient is alert, oriented, in no acute distress. Sitting up on the edge of the bed VITAL SIGNS: Reviewed HEENT: Head is normocephalic and atraumatic. Pupils are equal and reactive. The nares are patent. Oropharynx is clear without lesions. NECK: Supple without lymphadenopathy. Traches midline. HEART: S1, S2. Irregular LUNGS: No crackles or wheezes are heard. ABDOMEN: Soft, nontender, nondistended with good bowel sounds. No peritoneal signs. No palpable organomegaly or masses. Denying any nausea any vomiting denying abdominal pain when questioning abdominal scar left lower quadrant noted with a well-healed lower midline scar there is a soft nontender mass above the midline scar patient denies any tenderness EXTREMITIES: Normal skin color and turgor. Bilateral nonpitting edema. Radial pedal pulses are 2/4 bilaterally. NEUROLOGICAL: No focal deficits. Strength and sensation are grossly intact. Results - Labs 09/08/17 06:02 09/08/17 06:02 Abnormal Lab Results - Last 24 Hours (Table) 09/07/17 09/07/17 09/08/17 Range/Units 16:58 21:07 06:02 Hct (34.0-46.0) % RDW (11.5-15.5) % BUN 26 H (7-17) mg/dL Creatinine 1.10 H (0.52-1.04) mg/dL Glucose 111 H (74-99) mg/dL POC Glucose (mg/dL) 177 H 204 H (75-99) mg/dL Total Bilirubin 2.0 H (0.2-1.3) mg/dL HDL Cholesterol 20 L (40-60) mg/dL 09/08/17 09/08/17 09/08/17 Range/Units 06:02 06:43 11:21 Hct 47.2 H (34.0-46.0) % RDW 16.8 H (11.5-15.5) % BUN (7-17) mg/dL Creatinine (0.52-1.04) mg/dL Glucose (74-99) mg/dL POC Glucose (mg/dL) 109 H 113 H (75-99) mg/dL Total Bilirubin (0.2-1.3) mg/dL HDL Cholesterol (40-60) mg/dL Microbiology - Last 24 Hours (Table) 09/07/17 10:00 Urine Culture - Final Urine,Clean Catch Diabetes panel 09/08/17 Range/Units 06:02 Sodium 141 (137-145) mmol/L Potassium 4.0 (3.5-5.1) mmol/L Chloride 99 (98-107) mmol/L Carbon Dioxide 28 (22-30) mmol/L BUN 26 H (7-17) mg/dL Creatinine 1.10 H (0.52-1.04) mg/dL Glucose 111 H (74-99) mg/dL Calcium 9.1 (8.4-10.2) mg/dL AST 36 (14-36) U/L ALT 44 (9-52) U/L Alkaline Phosphatase 86 (38-126) U/L Total Protein 6.5 (6.3-8.2) g/dL Albumin 3.6 (3.5-5.0) g/dL Triglycerides 96 (<150) mg/dL HDL Cholesterol 20 L (40-60) mg/dL Calcium panel 09/08/17 Range/Units 06:02 Calcium 9.1 (8.4-10.2) mg/dL Albumin 3.6 (3.5-5.0) g/dL Pituitary panel 09/08/17 Range/Units 06:02 Sodium 141 (137-145) mmol/L Potassium 4.0 (3.5-5.1) mmol/L Chloride 99 (98-107) mmol/L Carbon Dioxide 28 (22-30) mmol/L BUN 26 H (7-17) mg/dL Creatinine 1.10 H (0.52-1.04) mg/dL Glucose 111 H (74-99) mg/dL Calcium 9.1 (8.4-10.2) mg/dL Adrenal panel 09/08/17 Range/Units 06:02 Sodium 141 (137-145) mmol/L Potassium 4.0 (3.5-5.1) mmol/L Chloride 99 (98-107) mmol/L Carbon Dioxide 28 (22-30) mmol/L BUN 26 H (7-17) mg/dL Creatinine 1.10 H (0.52-1.04) mg/dL Glucose 111 H (74-99) mg/dL Calcium 9.1 (8.4-10.2) mg/dL Total Bilirubin 2.0 H (0.2-1.3) mg/dL AST 36 (14-36) U/L ALT 44 (9-52) U/L Alkaline Phosphatase 86 (38-126) U/L Total Protein 6.5 (6.3-8.2) g/dL Albumin 3.6 (3.5-5.0) g/dL Assessment and Plan Assessment: Impression Presented admission incisional hernia Morbid obesity BMI 48 Episode of atrial fibrillation with rapid ventricular response on Xarelto History of having dry heaves currently resolved Possible esophageal reflex disease Factor 5 leiden deficiency Plan Patient will need to be medically optimized prior to any surgical intervention Outpatient repair of incisional hernia will be discussed in the office once patient has been cleared by medicine and cardiology Defer to the attending to address medical issues Patient could be set up in the outpatient setting to discuss if the EGD is warranted We'll see patient on an as-needed basis reconsult as needed Surgical consultation note dictated for Dr. shelton The above impression and plan of care have been discussed and directed by signing physician. Janae Salvador nurse practitioner acting as scribe for signing physician.
--- NOTE | 2017-09-08 16:18 | P.PN ---
Subjective Progress Note Date: 09/08/17 This is 67-year-old female with history of chronic afibrillation was admitted with increasing shortness of breath and pedal edema. An echo showed an ejection fraction of 20-25%. Patient was initiated on Entresto and diuretics, Yesterday. Patient is feeling better. Her edema is improving. Lungs are clear. Heart is regular. We'll increase her activity. Possible discharge within next 24 hours Objective - Vital Signs Vital signs: Vital Signs Temp 97.4 F L 09/08/17 08:15 Pulse 88 09/08/17 12:10 Resp 16 09/08/17 12:10 BP 110/74 09/08/17 12:10 Pulse Ox 97 09/08/17 12:10 Intake & Output 09/07/17 09/08/17 09/08/17 18:59 06:59 18:59 Intake Total 155.75 Output Total 600 Balance -444.25 Weight 135.7 kg Intake: Intake, IV Titration 37.75 Amount Diltiazem 50 mg In Sodium 37.75 Chloride 0.9% 40 ml @ 5 MG/HR 5 mls/hr IV .Q10H STA Rx#:[id number] Oral 118 Output: Urine 600 Other: # Voids 1 - Exam GENERAL EXAM: Patient is alert and oriented and doesn't appear to be in any acute distress HEENT: Normocephalic. Normal reaction of pupils, equal size, normal range of extraocular motion. No erythema or exudates in the throat. NECK: No masses, no nuchal rigidity. CHEST: No chest wall deformity. LUNGS: Equal air entry with no crackles or wheeze. HEART: Irregular ABDOMEN: No hepatosplenomegaly, normal bowel sounds, no guarding or rigidity. SKIN: No rashes CENTRAL NERVOUS SYSTEM: No focal deficits. EXTREMITIES: Mild edema. - Labs CBC & Chem 7: 09/08/17 06:02 09/08/17 06:02 Labs: Abnormal Lab Results - Last 24 Hours (Table) 09/07/17 09/07/17 09/08/17 Range/Units 16:58 21:07 06:02 Hct (34.0-46.0) % RDW (11.5-15.5) % BUN 26 H (7-17) mg/dL Creatinine 1.10 H (0.52-1.04) mg/dL Glucose 111 H (74-99) mg/dL POC Glucose (mg/dL) 177 H 204 H (75-99) mg/dL Total Bilirubin 2.0 H (0.2-1.3) mg/dL HDL Cholesterol 20 L (40-60) mg/dL 09/08/17 09/08/17 09/08/17 Range/Units 06:02 06:43 11:21 Hct 47.2 H (34.0-46.0) % RDW 16.8 H (11.5-15.5) % BUN (7-17) mg/dL Creatinine (0.52-1.04) mg/dL Glucose (74-99) mg/dL POC Glucose (mg/dL) 109 H 113 H (75-99) mg/dL Total Bilirubin (0.2-1.3) mg/dL HDL Cholesterol (40-60) mg/dL 09/08/17 Range/Units 13:21 Hct (34.0-46.0) % RDW (11.5-15.5) % BUN (7-17) mg/dL Creatinine (0.52-1.04) mg/dL Glucose (74-99) mg/dL POC Glucose (mg/dL) 121 H (75-99) mg/dL Total Bilirubin (0.2-1.3) mg/dL HDL Cholesterol (40-60) mg/dL Microbiology - Last 24 Hours (Table) 09/07/17 10:00 Urine Culture - Final Urine,Clean Catch Assessment and Plan (1) Atrial fibrillation with RVR Current Visit: Yes Status: Acute Code(s): I48.91 - UNSPECIFIED ATRIAL FIBRILLATION SNOMED Code(s): 999822563775898 (2) Leg edema Current Visit: Yes Status: Acute Code(s): R60.0 - LOCALIZED EDEMA SNOMED Code(s): 825584003 (3) Cardiomyopathy Current Visit: No Status: Acute Code(s): I42.9 - CARDIOMYOPATHY, UNSPECIFIED SNOMED Code(s): 12533994 (4) Diabetes Current Visit: No Status: Acute Code(s): E11.9 - TYPE 2 DIABETES MELLITUS WITHOUT COMPLICATIONS SNOMED Code(s): 49961962 (5) HTN (hypertension) Current Visit: No Status: Acute Code(s): I10 - ESSENTIAL (PRIMARY) HYPERTENSION SNOMED Code(s): 15656228 Plan: Continue current medical therapy. Increase activity. Possible discharge within next 24 hours
[2017-09-08 16:46] LABS: Glucose,Whole Blood 182 mg/dL (75-99)
[2017-09-08] MEDS: RIVAROXABAN 20 MG TAB PO SCH (18:37)
[2017-09-08 21:24] LABS: Glucose,Whole Blood 218 mg/dL (75-99)
[2017-09-09 04:42] VITALS: TEMP 98.8
[2017-09-09 06:45] LABS: Glucose,Whole Blood 88 mg/dL (75-99)
[2017-09-09] MEDS: ASPIRIN 81 MG PO SCH ×2 (08:04→10:11)
[2017-09-09] MEDS: LEVOFLOXACIN 250 MG TAB PO SCH (08:05)
[2017-09-09] MEDS: FUROSEMIDE 10 MG/ML 4 ML VIAL IV SCH (08:05)
[2017-09-09] MEDS: LORATADINE 10 MG TAB PO SCH (08:06)
[2017-09-09] MEDS: GLIMEPIRIDE 2 MG TAB PO SCH (08:06)
[2017-09-09] MEDS: SPIRONOLACTONE 25 MG TAB PO SCH (08:07)
[2017-09-09] MEDS: METOPROLOL TARTRATE 50 MG TAB PO SCH (08:07)
[2017-09-09] MEDS: INSULN ASP PRT/INSULIN ASPART 100 UNIT/ML 10 ML VIAL SQ SCH ×2 (08:37→10:09)
[2017-09-09] MEDS: ATORVASTATIN 40 MG TAB PO SCH (08:39)
[2017-09-09] MEDS: SACUBITRIL/VALSARTAN 24 MG-26 MG TABLET PO SCH (10:07)
[2017-09-09 11:34] LABS: Glucose,Whole Blood 143 mg/dL (75-99)
[2017-09-09 13:20] VITALS: BP 119/72; PULSE 98; RESP 16
[2017-09-09] MEDS ORDERED: FUROSEMIDE 40 MG TAB PO SCH (16:00)
--- NOTE | 2017-09-13 18:02 | CDI ---
Last Revision, March 2017 Documentation Clarification Form Date: 09/13/17 From: Kati Zuniga Phone: If you have a question regarding this query, please contact Gladys Oreilly at [phone] between 8am and 5pm. Admit Date: 09/07/2017 2:31:00 AM Patient Name: Danika Shahid Visit Number: [id number] Discharge Date: 09/09/17 ATTENTION: The Clinical Documentation Specialists (CDI) and [facility] Coding Staff appreciate your assistance in clarifying documentation. Please respond to the clarification below the line at the bottom and electronically sign. The CDI & [facility] Coding staff will review the response and follow-up if needed. Please note: Queries are made part of the Legal Health Record. If you have any questions, please contact the author of this message via ITS. Dr. Mehdi Becerril History of heart failure is documented in the H&P. History/Risk Factors: Patient was admitted in atrial fibrillation and has a history of cardiomyopathy, hypertension and diabetes. Clinical Indicators: Edema VS/Pulse OX: T. 98.0, P. 147, R. 20, BP 120/66, Pulse Ox 99 on room air BNP: 2880 on admit, 2940 the next day Chest X Ray: Progressed left upper lung pleural parenchymal scarring or subsegmental atelectasis in comparisonto the prior of 2014. No additional acute cardiac pulmonary process. Treatment: IV Lasix In your professional opinion, can you please clarify the acuity and type of CHF if known? Systolic Heart Failure: Acute Chronic Acute on Chronic Diastolic Heart Failure: Acute Chronic Acute on Chronic Systolic & Diastolic Heart Failure: Acute Chronic Acute on Chronic Heart Failure Unable to Determine Other, please specify MTDD
--- NOTE | 2017-09-20 12:54 | CDI ---
Last Revision, March 2017 Documentation Clarification Form Date: 09/20/17 From: aKti Zuniga Phone: If you have a question regarding this query, please contact Gladys Oreilly at [phone] between 8am and 5pm. Admit Date: 09/07/2017 2:31:00 AM Patient Name: Danika Shahid Visit Number: [id number] Discharge Date: 09/09/17 ATTENTION: The Clinical Documentation Specialists (CDI) and [facility] Coding Staff appreciate your assistance in clarifying documentation. Please respond to the clarification below the line at the bottom and electronically sign. The CDI & [facility] Coding staff will review the response and follow-up if needed. Please note: Queries are made part of the Legal Health Record. If you have any questions, please contact the author of this message via ITS. Dr. Mehdi Becerril History of heart failure is documented in the H&P. History/Risk Factors: Patient was admitted in atrial fibrillation and has a history of cardiomyopathy, hypertension and diabetes. Clinical Indicators: Edema VS/Pulse OX: T. 98.0, P. 147, R. 20, BP 120/66, Pulse Ox 99 on room air BNP: 2880 on admit, 2940 the next day Chest X Ray: Progressed left upper lung pleural parenchymal scarring or subsegmental atelectasis in comparisonto the prior of 2014. No additional acute cardiac pulmonary process. Treatment: IV Lasix In your professional opinion, can you please clarify the acuity and type of CHF if known? Systolic Heart Failure: Acute Chronic Acute on Chronic Diastolic Heart Failure: Acute Chronic Acute on Chronic Systolic & Diastolic Heart Failure: Acute Chronic Acute on Chronic Heart Failure Unable to Determine Other, please specify MTDD
--- NOTE | 2017-09-22 11:57 | CDI ---
Last Revision, March 2017 Documentation Clarification Form Date: 09/22/17 From: Kati Zuniga Phone: If you have a question regarding this query, please contact Gladys Oreilly at [phone] between 8am and 5pm Admit Date: 09/07/2017 2:31:00 AM Patient Name: Danika Shahid Visit Number: [id number] Discharge Date: 09/09/17 ATTENTION: The Clinical Documentation Specialists (CDI) and [facility] Coding Staff appreciate your assistance in clarifying documentation. Please respond to the clarification below the line at the bottom and electronically sign. The CDI & [facility] Coding staff will review the response and follow-up if needed. Please note: Queries are made part of the Legal Health Record. If you have any questions, please contact the author of this message via ITS. Dr. Catalino Trotter History of heart failure is documented in the H&P. History/Risk Factors: Patient was admitted in atrial fibrillation and has a history of cardiomyopathy, hypertension and diabetes. Clinical Indicators: Edema VS/Pulse OX: T. 98.0, P. 147, R. 20, BP 120/66, Pulse Ox 99 on room air BNP: 2880 on admit, 2940 the next day Chest X Ray: Progressed left upper lung pleural parenchymal scarring or subsegmental atelectasis in comparisonto the prior of 2014. No additional acute cardiac pulmonary process. Treatment: IV Lasix In your professional opinion, can you please clarify the acuity and type of CHF if known? Systolic Heart Failure: Acute Chronic Acute on Chronic Diastolic Heart Failure: Acute Chronic Acute on Chronic Systolic & Diastolic Heart Failure: Acute Chronic Acute on Chronic Heart Failure Unable to Determine Other, please specify Not responsible for this patient, wrong physician query BRY
--- NOTE | 2017-09-27 11:59 | CDI ---
Last Revision, March 2017 Documentation Clarification Form Date: 09/27/17 From: Kati Zuniga Phone: If you have a question regarding this query, please contact Gladys Oreilly at [phone] between 8am and 5pm. Admit Date: 09/07/2017 2:31:00 AM Patient Name: Danika Shahid Visit Number: [id number] Discharge Date: 09/09/17 ATTENTION: The Clinical Documentation Specialists (CDI) and [facility] Coding Staff appreciate your assistance in clarifying documentation. Please respond to the clarification below the line at the bottom and electronically sign. The CDI & [facility] Coding staff will review the response and follow-up if needed. Please note: Queries are made part of the Legal Health Record. If you have any questions, please contact the author of this message via ITS. Dr. Mehdi Becerril History of heart failure is documented in the H&P. History/Risk Factors: Patient was admitted in atrial fibrillation and has a history of cardiomyopathy, hypertension and diabetes. Clinical Indicators: Edema VS/Pulse OX: T. 98.0, P. 147, R. 20, BP 120/66, Pulse Ox 99 on room air BNP: 2880 on admit, 2940 the next day Chest X Ray: Progressed left upper lung pleural parenchymal scarring or subsegmental atelectasis in comparisonto the prior of 2014. No additional acute cardiac pulmonary process. Treatment: IV Lasix In your professional opinion, can you please clarify the acuity and type of CHF if known? Systolic Heart Failure: Acute Chronic Acute on Chronic Diastolic Heart Failure: Acute Chronic Acute on Chronic Systolic & Diastolic Heart Failure: Acute Chronic Acute on Chronic Heart Failure Unable to Determine Other, please specify MTDD
--- NOTE | 2017-09-29 16:57 | CDI ---
Last Revision, March 2017 Documentation Clarification Form Date: 09/29/17 From: Kati Zuniga Phone: If you have a question regarding this query, please contact Gladys Oreilly at Admit Date: 09/07/2017 2:31:00 AM Patient Name: Danika Shahid Visit Number: [id number] Discharge Date: 09/09/17 ATTENTION: The Clinical Documentation Specialists (CDI) and [facility] Coding Staff appreciate your assistance in clarifying documentation. Please respond to the clarification below the line at the bottom and electronically sign. The CDI & [facility] Coding staff will review the response and follow-up if needed. Please note: Queries are made part of the Legal Health Record. If you have any questions, please contact the author of this message via ITS. Dr. Mehdi Becerril History of heart failure is documented in the H&P. History/Risk Factors: Patient was admitted in atrial fibrillation and has a history of cardiomyopathy, hypertension and diabetes. Clinical Indicators: Edema VS/Pulse OX: T. 98.0, P. 147, R. 20, BP 120/66, Pulse Ox 99 on room air BNP: 2880 on admit, 2940 the next day Chest X Ray: Progressed left upper lung pleural parenchymal scarring or subsegmental atelectasis in comparisonto the prior of 2014. No additional acute cardiac pulmonary process. Treatment: IV Lasix In your professional opinion, can you please clarify the acuity and type of CHF if known? Systolic Heart Failure: Acute Chronic Acute on Chronic Diastolic Heart Failure: Acute Chronic Acute on Chronic Systolic & Diastolic Heart Failure: Acute Chronic Acute on Chronic Heart Failure Unable to Determine Other, please specify MTDD
--- NOTE | 2017-10-01 23:20 | DS ---
DISCHARGE SUMMARY ADD TO DISCHARGE DIAGNOSIS: 1. Acute on chronic systolic hypertension. MMODL / IJN: [id number] /
== END 2017-09-09 15:57 | disposition home or self-care (01) | DRG 308 ==
LOC: EC 23:07 → 6SEL 09-07 02:31
PROVIDERS: ADMIT Family Medicine; ATTEND Family Medicine
DX: I48.2 Chronic atrial fibrillation (principal); I50.23 Acute on chronic systolic (congestive) heart failure; D68.51 Activated protein C resistance; N39.0 Urinary tract infection, site not specified; Z68.42 Body mass index [BMI] 45.0-49.9, adult; E66.01 Morbid (severe) obesity due to excess calories; E78.5 Hyperlipidemia, unspecified; I11.0 Hypertensive heart disease with heart failure; I42.9 Cardiomyopathy, unspecified; E07.9 Disorder of thyroid, unspecified; I45.10 Unspecified right bundle-branch block; J32.9 Chronic sinusitis, unspecified; J44.9 Chronic obstructive pulmonary disease, unspecified; K21.9 Gastro-esophageal reflux disease without esophagitis; K43.2 Incisional hernia without obstruction or gangrene; K58.0 Irritable bowel syndrome with diarrhea; F41.9 Anxiety disorder, unspecified; M19.90 Unspecified osteoarthritis, unspecified site; E11.9 Type 2 diabetes mellitus without complications; Z79.01 Long term (current) use of anticoagulants; Z79.4 Long term (current) use of insulin; Z79.899 Other long term (current) drug therapy; Z91.14 Patient's other noncompliance with medication regimen; Z90.710 Acquired absence of both cervix and uterus; Z90.49 Acquired absence of other specified parts of digestive tract; Z86.711 Personal history of pulmonary embolism; Z86.718 Personal history of other venous thrombosis and embolism; Z88.5 Allergy status to narcotic agent; Z88.6 Allergy status to analgesic agent; Z88.1 Allergy status to other antibiotic agents; Z91.040 Latex allergy status; Z82.3 Family history of stroke; Z83.3 Family history of diabetes mellitus; Z80.49 Family history of malignant neoplasm of other genital organs; Z80.8 Family history of malignant neoplasm of other organs or systems; Z82.49 Family history of ischemic heart disease and other diseases of the circulatory system
CPT/HCPCS: 36415; 71046; 80053; 80061; 81001; 82550; 82553; 83036; 83690; 83735; 83880; 84484; 85025; 85610; 85730; 87086; 93005; 96365; 96366; 96375; 99285

== ENCOUNTER 2024-11-12 14:16 | Emergency (ER) | payer MEDICARE ==
[2024-11-12 14:23] VITALS: TEMP 97.9
--- NOTE | 2024-11-12 14:42 | ED ---
General Adult HPI - General Chief complaint: Abdominal Pain Stated complaint: Abd swelling Time Seen by Provider: 11/12/24 14:25 Source: patient, RN notes reviewed Mode of arrival: ambulatory Limitations: no limitations - History of Present Illness Initial comments: 74-year-old female with history of diabetes and A-fib on Xarelto presenting to the emergency department for complaints of worsening abdominal swelling. Patient states that she was evaluated by Mahesh Hidalgo last week where she had an abdominal x-ray and blood work was told that she was dehydrated need to increase hydration and was provided with a stool softener. She states that her abdominal distention has been worsening and now there is redness and warmth to the area. She states that she has been having loose stools that are nonbloody. Denies urinary complaints, fevers, nausea or vomiting. Endorses chills. - Related Data Home Medications Medication Instructions Recorded Confirmed Rivaroxaban [Xarelto] 20 mg PO PC-SUPPER 09/20/14 09/07/17 Insulin NPL/Insulin Lispro 35 unit SQ BID 07/20/17 09/07/17 [humaLOG MIX 75-25 VIAL] Losartan Potassium [Cozaar] 25 mg PO DAILY 07/20/17 09/07/17 traMADol HCL [Ultram] 50 mg PO DAILY PRN 07/20/17 09/07/17 Furosemide [Lasix] 40 mg PO BID 09/07/17 09/07/17 Previous Rx's Medication Instructions Recorded Aspirin 81 mg PO DAILY chew 09/09/17 Atorvastatin [Lipitor] 40 mg PO DAILY tab 09/09/17 Glimepiride [Amaryl] 2 mg PO DAILY tab 09/09/17 Loratadine [Claritin] 10 mg PO DAILY tab 09/09/17 Metoprolol Tartrate [Lopressor] 50 mg PO TID tab 09/09/17 Nitroglycerin Sl Tabs [Nitrostat] 0.4 mg SUBLINGUAL Q5M PRN tab 09/09/17 Spironolactone [Aldactone] 25 mg PO DAILY tab 09/09/17 Allergies Allergy/AdvReac Type Severity Reaction Status Date / Time acetaminophen Allergy nausea Verified 11/12/24 14:23 [From Darvocet-N] from acetominophen after a few doses cephalexin monohydrate Allergy Rash/Hives Verified 11/12/24 14:23 [From Keflex] latex Allergy Rash/Hives Verified 11/12/24 14:23 morphine Allergy Itching/Teo Verified 11/12/24 14:23 sea propoxyphene napsylate Allergy Rash/Hives Verified 11/12/24 14:23 [From Darvocet-N] codeine AdvReac Nausea Verified 11/12/24 14:23 Review of Systems ROS Statement: Those systems with pertinent positive or pertinent negative responses have been documented in the HPI. ROS Other: All systems not noted in ROS Statement are negative. Past Medical History Past Medical History: Atrial Fibrillation, Diabetes Mellitus, Deep Vein Thrombosis (DVT), GERD/Reflux, Neurologic Disorder, Osteoarthritis (OA), Pulmonary Embolus (PE) Additional Past Medical History / Comment(s): HX FACTOR 5 , DIZZINESS LATELY-HX VERTIGO SINCE 1991, HX MOTION SICKNESS ALL HER LIFE, HX IBS,TARSAL TUNNEL PROBLEMS NIKOLAY. ANKLES,PINCHED NERVE LOWER BACK, DDD, HAS POLYP LT CHEEK-BUT DR. IBRAHIM DOESN'T WANT PT TO HAVE REMOVED DVT-LT LEG & PE 2007, CHRONIC SINUS, LIVER ENZMES ELEVATED SPRING 2014,THYROID IS ENLARGED, WEARS GLASSES DISTANCE ONLY, FLUID IN LEFT EAR ALL THE TIME History of Any Multi-Drug Resistant Organisms: None Reported Past Surgical History: Bowel Resection, Cholecystectomy, Hysterectomy, Tonsillectomy, Tubal Ligation Additional Past Surgical History / Comment(s): CARDIOVERSION 2014 and 2016 @ [facility], LUMP REMOVED RT ARMPIT AREA, COLOSTOMY 1991 AFTER HYST R/T RUPTURED BOWEL REVISION OCTOBER 1991 Past Anesthesia/Blood Transfusion Reactions: Previous Problems w/ Anesthesia, Motion Sickness, Postoperative Nausea & Vomiting (PONV) Additional Past Anesthesia/Blood Transfusion Reaction / Comment(s): HX FACTOR 5 LIDEN,PONV- MOTION SICKNESS ALL HER LIFE- VERTIGO Past Psychological History: Anxiety Smoking Status: Never smoker Past Alcohol Use History: None Reported Past Drug Use History: None Reported - Past Family History Mother Family Medical History: CVA/TIA, Diabetes Mellitus, Hypertension Father History Unknown: Yes Additional Family Medical History / Comment(s): FATHER @ AGE 83- PT WAS 3 YRS OLD @ THE TIME- HX UNKNOWN Sister(s) Family Medical History: Cancer Additional Family Medical History / Comment(s): 5 SISTERS WITH THYROID- 3 SISTERS HAD CA- PANCREATIC,CERVICAL & MELANOMA General Exam Limitations: no limitations Neck exam: Present: normal inspection. Absent: tenderness, meningismus, ly mphadenopathy Respiratory exam: Present: normal lung sounds bilaterally. Absent: respiratory distress, wheezes, rales, rhonchi, stridor Cardiovascular Exam: Present: regular rate, normal rhythm, normal heart sounds. Absent: systolic murmur, diastolic murmur, rubs, gallop, clicks GI/Abdominal exam: Present: distended, tenderness, normal bowel sounds. Absent: soft, guarding, rebound, rigid Extremities exam: Present: normal inspection, full ROM, normal capillary refill. Absent: tenderness, pedal edema, joint swelling, calf tenderness Back exam: Present: normal inspection Course Vital Signs 11/12/24 11/12/24 11/12/24 14:18 16:00 18:00 Temperature 97.9 F Pulse Rate 76 91 77 Respiratory 18 12 16 Rate Blood Pressure 123/79 149/68 130/82 O2 Sat by Pulse 98 99 98 Oximetry Medical Decision Making - Medical Decision Making Was pt. sent in by a medical professional or institution (, PA, AUTO HIKER, urgent care, hospital, or penitentiary...) When possible be specific @ -No Did you speak to anyone other than the patient for history (EMS, parent, family, police, friend...)? What history was obtained from this source @ -No Did you review nursing and triage notes (agree or disagree)? Why? @ -I reviewed and agree with nursing and triage notes Were old charts reviewed (outside hosp., previous admission, EMS record, old EKG, old radiological studies, urgent care reports/EKG's, penitentiary records)? Report findings @ -No old charts were reviewed Differential Diagnosis (chest pain, altered mental status, abdominal pain women, abdominal pain men, vaginal bleeding, weakness, fever, dyspnea, syncope, headache, dizziness, GI bleed, back pain, seizure, CVA, palpatations, mental health, musculoskeletal)? @ -Differential Abdominal Pain Women: Appendicitis, Cholecystitis, diverticulosis, ischemic bowel, pancreatitis, hepatitis, UTI, gastroenteritis, AAA, incarcerated hernia, bowel obstruction, constipation, inflammatory bowel, hepatitis, peptic ulcer disease, splenic infarction, perforated viscus, vulvitis, ovarian torsion, PID, kidney stone, placenta abruption, this is not meant to be an all-inclusive list EKG interpreted by me (3pts min.). @ -none X-rays interpreted by me (1pt min.). @ -None done CT interpreted by me (1pt min.). @ -CT of the abdomen pelvis with IV contrast reveals small anterior abdominal wall hernia with subcutaneous edema and ascites adjacent to the liver and spleen. U/S interpreted by me (1pt. min.). @ -None done What testing was considered but not performed or refused? (CT, X-rays, U/S, labs)? Why? @ -None What meds were considered but not given or refused? Why? @ -None Did you discuss the management of the patient with other professionals (professionals i.e. , PA, AUTO HIKER, lab, RT, psych nurse, bilingual social worker, icu specialist, teacher, electrical engineering drafting officer, special education case manager)? Give summary @ -No Was smoking cessation discussed for >3mins.? @ -No Was critical care preformed (if so, how long)? @ -No Were there social determinants of health that impacted care today? How? (Homelessness, low income, unemployed, alcoholism, drug addiction, transportation, low edu. Level, literacy, decrease access to med. care, fpc, rehab)? @ -No Was there de-escalation of care discussed even if they declined (Discuss DNR or withdrawal of care, Hospice)? DNR status @ -No What co-morbidities impacted this encounter? (DM, HTN, Smoking, COPD, CAD, Cancer, CVA, ARF, Chemo, Hep., AIDS, mental health diagnosis, sleep apnea, morbid obesity)? @ -None Was patient admitted / discharged? Hospital course, mention meds given and route, prescriptions, significant lab abnormalities, going to OR and other pertinent info. @ -Discharge. 74 female presenting with complaints of abdominal pain distention. Patient noted to have a edematous lower abdomen that is tender to the touch and indurated. No erythema, purulence or's macerated skin. She is provided pain medication. Laboratory testing is unremarkable. CT imaging reveals subcutaneous edema with ascites adjacent to the liver and spleen no evidence of cellulitis or infection. Patient is informed of results instructed follow-up with primary care provider for further evaluation for potential adjustment in Lasix dosage. Case discussed with my attending Dr. Pedroza. Undiagnosed new problem with uncertain prognosis? @ -No Drug Therapy requiring intensive monitoring for toxicity (Heparin, Nitro, Insulin, Cardizem)? @ -No Were any procedures done? @ -No Diagnosis/symptom? @ -abdominal pain, edema of abdomen Acute, or Chronic, or Acute on Chronic? @ -acute Uncomplicated (without systemic symptoms) or Complicated (systemic symptoms)? @ -uncomplicated Side effects of treatment? @ -No Exacerbation, Progression, or Severe Exacerbation? @ -No Poses a threat to life or bodily function? How? (Chest pain, [place], [place], pneumonia, PE, COPD, DKA, ARF, appy, cholecystitis, CVA, Diverticulitis, Homicidal, Suicidal, threat to staff... and all critical care pts) @ -No - Lab Data Result diagrams: 11/12/24 15:11 11/12/24 15:11 Lab Results 11/12/24 11/12/24 11/12/24 Range/Units 15:11 15:11 15:11 WBC 4.80 (4.50-10.00) 10*3/uL RBC 4.07 L (4.10-5.20) 10*6/uL Hgb 12.3 (12.0-15.0) g/dL Hct 38.1 (37.2-46.3) % MCV 93.6 (80.0-97.0) fL MCH 30.2 (27.0-32.0) pg MCHC 32.3 (32.0-37.0) g/dL Plt Count 137 L (140-440) 10*3/uL MPV 10.9 (9.5-12.2) fL Immature Gran % (Auto) 0.2 % Neutrophils % 62.7 % Lymphocytes % 21.3 % Monocytes % 12.3 % Eosinophils % 2.7 % Basophils % 0.8 % Immature Gran # 0.01 (0.00-0.04) 10*3/uL Neutrophils # 3.01 (1.80-7.70) 10*3/uL Lymphocytes # 1.02 (0.90-5.00) 10*3/uL Monocytes # 0.59 (0.20-1.00) 10*3/uL Eosinophils # 0.13 (0.04-0.35) 10*3/uL Basophils # 0.04 (0.00-0.10) 10*3/uL Sodium 139 (137-145) mmol/L Potassium 5.0 (3.5-5.1) mmol/L Chloride 105 (98-107) mmol/L Carbon Dioxide 21 L (22-30) mmol/L Anion Gap 13 mmol/L BUN 22 H (7-17) mg/dL Creatinine 0.89 (0.52-1.04) mg/dL Est GFR (CKD-EPI)AfAm 75 (>60 ml/min/1.73 sqM) Est GFR (CKD-EPI)NonAf 65 (>60 ml/min/1.73 sqM) Glucose 135 H (74-99) mg/dL Plasma Lactic Acid Erick 1.1 (0.7-2.0) mmol/L Calcium 9.3 (8.4-10.2) mg/dL Total Bilirubin 1.4 H (0.2-1.3) mg/dL AST 47 H (14-36) U/L ALT 27 (4-34) U/L Alkaline Phosphatase 130 H (38-126) U/L C-Reactive Protein 1.0 H (<1.0) mg/dL Total Protein 7.9 (6.3-8.2) g/dL Albumin 4.4 (3.5-5.0) g/dL Disposition Clinical Impression: Edema of abdomen Disposition: HOME SELF-CARE Condition: Good Instructions (If sedation given, give patient instructions): Abdominal Pain (ED) Additional Instructions: Please return to the Emergency Department if symptoms worsen or any other concerns. Please follow-up with your primary care provider in the next 1 to 3 days. Is patient prescribed a controlled substance at d/c from ED?: No Referrals: Chris Castillo DO [Primary Care Provider] - 1-2 days Time of Disposition: 18:34
[2024-11-12] MEDS: MORPHINE SULFATE 4 MG/ML SYRINGE IVP STA (15:48)
[2024-11-12 15:51] LABS: Basophils # (A) 0.04 10*3/uL (0.00-0.10); Basophils % (A) 0.8 %; Eosinophils # (A) 0.13 10*3/uL (0.04-0.35); Eosinophils % (A) 2.7 %; HCT 38.1 % (37.2-46.3); HGB 12.3 g/dL (12.0-15.0); Lymphocytes # (A) 1.02 10*3/uL (0.90-5.00); Lymphocytes % (A) 21.3 %; MCH 30.2 pg (27.0-32.0); MCHC 32.3 g/dL (32.0-37.0); MCV 93.6 fL (80.0-97.0); Monocytes # (A) 0.59 10*3/uL (0.20-1.00); Monocytes % (A) 12.3 %; Neutrophils # (A) 3.01 10*3/uL (1.80-7.70); Neutrophils % (A) 62.7 %; Platelet Count 137 10*3/uL (140-440); RBC 4.07 10*6/uL (4.10-5.20); RDW 14.4 % (11.5-14.5); WBC 4.80 10*3/uL (4.50-10.00)
[2024-11-12 16:02] LABS: ALT 27 U/L (4-34); African American GFR (CKD) 75 (>60 ml/min/1.73 sqM); Albumin 4.4 g/dL (3.5-5.0); Anion Gap 13 mmol/L; Blood Urea Nitrogen 22 mg/dL (7-17); Calcium 9.3 mg/dL (8.4-10.2); Carbon Dioxide 21 mmol/L (22-30); Chloride 105 mmol/L (98-107); Glucose 135 mg/dL (74-99); Non-African American GFR(CKD) 65 (>60 ml/min/1.73 sqM); Sodium 139 mmol/L (137-145); Total Protein 7.9 g/dL (6.3-8.2)
[2024-11-12 16:11] LABS: AST 47 U/L (14-36); Alkaline Phosphatase 130 U/L (38-126); Potassium 5.0 mmol/L (3.5-5.1)
--- NOTE | 2024-11-12 18:07 | CT ---
EXAMINATION TYPE: CT abdomen pelvis w con DATE OF EXAM: 11/12/2024 5:16 PM COMPARISON: 08/04/2014 CLINICAL INDICATION: Female, 74 years old with history of abdominal distention, panus erythema and ed kati, abdominal pain, distention, constipation TECHNIQUE: Axial images were obtained from above the diaphragm to the pubic rami in the axial plane a t 5 mm thick sections. Reconstructed images are reviewed on the computer in the coronal plane. CONTRAST: 100 mL of Isovue 300. Study performed without Oral Contrast DLP: 3113.7 mGycm, Automated exposure control for dose reduction was used. FINDINGS: Limited CT sections are obtained the lung bases. The lung bases are clear. CT ABDOMEN: Small amount of ascites is adjacent to the liver and spleen. Liver: Normal Spleen: Normal Pancreas: Normal Adrenal glands: The adrenal glands are normal. Gallbladder: Surgically absent Kidneys: No masses are evident. No hydronephrosis is present. No cysts are present. Delayed images were obtained through the kidneys, which remain unremarkable. Aorta: Vascular calcification is within the aorta. Inferior vena cava: Normal. CT PELVIS: There is a periumbilical hernia with mesenteric fat and a nondilated loop of small bowel. Subcutaneous edema is present Loops of bowel within the abdomen and pelvis are normal. The study is without oral contrast limit ing bowel evaluation. No significant fecal retention is evident. Appendix: Not identified. No dilated tubular structure or inflammatory changes are. Urinary bladder: Normal. Genitourinary structures: Uterus and ovaries are not identified Osseous structures: No suspicious lytic or sclerotic lesions. Facet degenerative changes are in the l ower lumbar spine. IMPRESSION: 1. Small anterior abdominal wall hernia in the periumbilical region containing some nondilated loops of bowel. No obstruction is identified. 2. Subcutaneous edema. 3. Ascites adjacent to the liver and spleen. [facility], Workstation: [facility], 11/12/2024 6:05 PM
[2024-11-12 18:08] VITALS: BP 130/82; PULSE 77; RESP 16
== END 2024-11-12 18:48 | disposition home or self-care (01) ==
LOC: EC 14:16
DX: R60.9 Edema, unspecified (principal); E11.9 Type 2 diabetes mellitus without complications; I48.91 Unspecified atrial fibrillation; Z91.040 Latex allergy status; Z88.5 Allergy status to narcotic agent; Z88.8 Allergy status to other drugs, medicaments and biological substances
CPT/HCPCS: 36415; 80053; 83605; 85025; 86140; 74177; 99284; 96374; J2270; Q9967